=== PATIENT | female | born 1960 | race Asian ===

== ENCOUNTER → 2016-11-16 | Outpatient (CLI) | payer OTHER ==
[~2016-11-16] VITALS: Ht 152.4 cm; Wt 68.0 kg
[2016-11-16 08:38] VITALS: BP 148/75
--- NOTE | 2016-11-16 11:18 | RAD ---
Indication masses in the left breast highly suspect for malignancy. Note is made of a diagnostic mammogram and a left breast ultrasound 10/11/2016. Those studies were reviewed. Preliminary ultrasound images were obtained. Known masses (2) at the 3:00 position of the left breast in zones A and B are identified. Active Directory Engineer images were saved The patient does not speak Slovenian. The son was in the room during the procedure and functioned as the paint brush maker. The risks of infection and bleeding were outlined. The patient understood the risks associated with the procedure and wished proceed. Initially the more superficial mass at the 3:00 position, zone A, was approached. The skin was prepped and draped in the routine fashion. Local anesthesia was accomplished with 1% lidocaine. A 14-gauge coaxial biopsy system was utilized. 3. Core samples were obtained. Following the biopsy an Ultra clip breast tissue marker was placed. Subsequently, using a new tray needles and biopsy system the second, deeper mass at the 3:00 position, zone B, was approached. The skin was again prepped and draped in the routine fashion. Local anesthesia was accomplished with 1% lidocaine. A 14-gauge coaxial biopsy system was again utilized. 3 core samples were obtained. Following the biopsy a Gel Freeman Ultracor breast tissue marker was placed. Retrieved tissue was placed in formaldehyde (2 different specimen cups) and transferred to pathology. The patient tolerated the biopsy procedure unremarkably. Post biopsy clip deployment conventional mammographic images were obtained. Clips are noted and appear appropriately positioned. Following the biopsies the breast was dressed in the routine fashion. The patient was discharged with appropriate instructions. IMPRESSION:: Successful ultrasound-guided biopsy of 2 masses in the left breast
--- NOTE | 2016-11-17 16:04 | PATHOLOGY ---
PATHOLOGY REPORT * * * * * * * * FINAL DIAGNOSIS: A. Breast tissue, left breast site 1 superficial zone A, core biopsies: - INVASIVE DUCTAL CARCINOMA, HISTOLOGIC GRADE 2, WITH FOCAL DENSE SCLEROSIS. B. Breast tissue, left breast site 2 deeper zone B, core biopsies: - INVASIVE DUCTAL CARCINOMA, HISTOLOGIC GRADE 2, WITH FOCAL DENSE SCLEROSIS. COMMENT: Sections of the left breast site 1 and left breast site 2 core biopsies appear similar and reveal an invasive ductal carcinoma with a central core of dense sclerosis. The invasive tumor largely has a solid appearance but does show focal tubule formation within the dense sclerotic core. The invasive tumor shows moderate nuclear pleomorphism, and focal moderate mitotic activity. There is no lymphovascular tumor invasion. There does appear to be a focal area of ductal carcinoma in-situ with lobular extension in left breast site 2. The invasive carcinoma measures up to 1.4 cm in greatest dimension on the glass slide of left breast site 2. Breast prognostic studies will be obtained on left breast site 2, the results of which will be reported separately. The case is also examined by Dr. Gupta, who concurs with the diagnosis. (JPM:all; d/t: 11/17/2016) REPORT ELECTRONICALLY SIGNED BY: Mason Jenkins M.D. DATE/TIME: 11/17/2016 16:03 * * * * * * * * GROSS PATHOLOGY: A. Received in formalin labeled "Jaylen, Htoe and left breast site 1," are few needle cores of yellow-kathleen fibrofatty tissue measuring 1.7 x 0.5 x 0.2 cm in aggregate dimensions. The tissue is submitted in its entirety in cassette A1. The cold ischemic time is 20 minutes. The total formalin fixation time is 10 hours and 25 minutes. B. Received in formalin labeled "Jaylen, Htoe and left breast site 2," are several needle cores of yellow-kathleen fibrofatty tissue measuring 1.7 x 0.4 x 0.3 cm in aggregate dimensions. The tissue is submitted in its entirety in cassette B1. The cold ischemic time is 20 minutes. The total formalin fixation time is 10 hours and 25 minutes. (TTL; 11/16/2016) INITIAL CPT CODE(S): A; 03048, 22033(4) B; 92763 Professional services performed by [facility] at [address] [address] Technical services performed by [facility] at [address] [place] [address], [address], [place] [address]. [place] [address], [place] [address] phone: [phone] fax: [phone] SPECIMEN(S) RECEIVED: A.Left breast, site 1, superficial zone A B.Left breast, site 2, deeper zone B CLINICAL HISTORY: Left breast mass PATIENT: ANATSASIA TOM /AGE: 1 1960 (Age: 56) PATIENT #: [id number] ALT CASE #: SPECIMEN COLLECTION DATE: 11/16/2016 SPECIMEN RECEIVED DATE: 11/16/2016 [facility] - [address] [place] [address] - PHONE: [phone] * * * END OF REPORT * * *
== END | disposition home or self-care (01) ==
LOC: US 08:09 → EDUNIT# 08:30
PROVIDERS: ATTEND Surgery
DX: N63 Unspecified lump in breast (principal)
CPT/HCPCS: 76942; C1713; G0206

== ENCOUNTER 2016-12-07 07:34 | Observation (INO) | payer OTHER ==
[2016-12-07] VITALS (11 sets, daily range): BP systolic 109–147; BP diastolic 66–89
[~2016-12-07] VITALS: Ht 152.4 cm; Wt 68.5 kg
[~2016-12-07 07:34] MED LIST: CARV12.52 PO; FENTANYL PF 100 MCG/2 ML VIAL. IV PRN; HYDROMORPHONE 2 MG/ML VIAL. IV PRN; ISOSULFAN BLUE 50 MG/5 ML VIAL. SQ ONE; IV RINGERS,LACTATED 1000ML 1,000 ML IV SCH; LIDOCAINE 1% 1 ML SYRINGE. ID PRN; ONDANSETRON PF 4 MG/2 ML VIAL. IV PRN; PROCHLORPERAZINE 10 MG/2 ML VIAL. IV PRN; TRIA1CAP3 PO
[2016-12-07] MEDS ORDERED: LIDOCAINE 1% / SOD BICARB 8.4% 20 ML VIAL. IJ ONE (08:00)
[2016-12-07] MEDS ORDERED: CEFAZOLIN 2GM PREMIX 50 ML IV ONE (08:20)
[2016-12-07 08:23] LABS: NEG OBC UR NEG; POS OBC UR POS
[2016-12-07 08:26] LABS: BASO % 1 % (0-3); EOS % 4 % (0-3); HEMATOCRIT 38.4 % (36.0-47.0); HEMOGLOBIN 11.8 g/dL (12.0-15.5); LYMPH # 1.7 x10^3/uL (1.0-4.8); LYMPH % 35 % (24-48); MEAN CORPUSCULAR HEMOGLOBIN 20 pg (25-35); MEAN CORPUSCULAR HGB CONC 31 g/dL (31-37); MEAN CORPUSCULAR VOLUME 64 fL (79-100); MONO % 10 % (0-9); NEUT % 51 % (31-73); PLATELET COUNT 250 x10^3/uL (140-400); RED BLOOD COUNT 6.05 x10^6/uL (3.50-5.40); RED CELL DISTRIBUTION WIDTH 16.1 % (11.5-14.5); WHITE BLOOD COUNT 4.7 x10^3/uL (4.0-11.0)
[2016-12-07 08:41] LABS: CALCIUM 9.3 mg/dL (8.5-10.1); CREATININE 1.1 mg/dL (0.6-1.0); GFR 51.8
[2016-12-07 08:47] LABS: ALBUMIN 3.8 g/dL (3.4-5.0); ALBUMIN/GLOBULIN RATIO 0.8 (1.0-1.7); TOTAL BILIRUBIN 0.5 mg/dL (0.2-1.0); TOTAL PROTEIN 8.3 g/dL (6.4-8.2)
--- NOTE | 2016-12-07 09:38 | RAD ---
Indication: Preop for lumpectomy. Time of exam 0918 hours. No prior studies are available for comparison. The heart is mildly enlarged. The lungs are clear. The pulmonary vascularity is normal. No effusion or pneumothorax is seen. Impression: No acute cardiopulmonary process is detected.
--- NOTE | 2016-12-07 10:18 | RAD ---
Left breast radionuclide sentinel node localization, 12/07/2016: History: Breast cancer Under aseptic conditions and utilizing ethyl chloride spray for topical anesthesia, a total of 0.90 mCi of filtered technetium 99m sulfur colloid mixed with 0.5 cc of 1% buffered lidocaine was injected subdermally in the left periareolar region in 4 divided doses. No imaging was performed. The patient tolerated the procedure well and was sent to surgery in good condition.
[2016-12-07 10:20] LABS: MICROCYTOSIS PRESENT; PLT ESTIMATE ADEQUATE (ADEQUATE)
[2016-12-07] MEDS ORDERED: FENTANYL PF 100 MCG/2 ML VIAL. ONE ×2 (10:20→12:44)
[2016-12-07 10:21] LABS: ANISOCYTOSIS PRESENT; HYPOCHROMIA PRESENT
[2016-12-07] MEDS ORDERED: EPHEDRINE PF IN SALINE 50 MG/5 ML DISP.SYRIN. IV ONE (10:50)
[2016-12-07] MEDS ORDERED: ONDANSETRON PF 4 MG/2 ML VIAL. ONE (11:44)
[2016-12-07] MEDS ORDERED: DEXAMETHASONE SOD PHOS 20 MG/5 ML VIAL. ONE (11:44)
[2016-12-07] MEDS ORDERED: PROPOFOL 20 ML IV ONE (11:44)
[2016-12-07] MEDS ORDERED: LIDOCAINE 2% PF Vial for OR 5 ML VIAL. ONE (11:44)
[2016-12-07] MEDS ORDERED: LABETALOL 20 MG/4 ML DISP.SYRIN. ONE (11:44)
[2016-12-07] MEDS ORDERED: SEVOFLURANE > 120 MINUTES. IH ONE (12:37)
--- NOTE | 2016-12-07 13:04 | PDOC4 ---
Operative Note Operative Note Operative Note: Preoperative Diagnosis: Left breast cancer Postoperative Diagnosis: Same Procedure: Left simple mastectomy, sentinel lymph node biopsy, axillary dissection Surgeon: Andrew Battery Assembler Dry Cell: Sabina MARK Anesthesia: Gen. Specimen: Left breast stitch at 12:00 to pathology, left axillary contents to pathology Drains: 19 Mosotho round Dillan drain the chest wall Complications: None Indication: The patient is a 56-year-old female who was recently diagnosed with multifocal left breast cancer. Due to the nature of her presentation in complete mastectomy was advised. The plan incorporate a sentinel lymph node biopsy and she is aware that an excellent dissection may be necessary. The risks of surgery were discussed with the patient and her son which include bleeding, infection, wound healing problems, pain, scar tissue, anesthetic risk , potential need for additional surgeries or procedures. They understand and would like to proceed. Description: The patient was initially taken to radiology where injection of technetium sulfur colloid was performed. She was then taken to the operating room and placed supine on the operating table. Gen. anesthesia was performed. The left breast was prepped with ChloraPrep and draped in a standard surgical manner. Four milliliters of Lymphazurin was initially injected deep to the nipple areolar complex. Several minutes were allowed to elapse for uptake. An elliptical marking was made around the nipple areola complex extending from the medial chest to the axilla. This marking was the planned incision site. The outer aspect of the superior part of the marking was incised using a 10 blade scalpel. Cautery dissection was carried down into the axillary tissue. We were able to see a somewhat dilated blue staining lymphatic. The appearance raise suspicion for possible lymphatic obstruction. The left axilla was then interrogated with the C-Trak probe. We were unable to find a lymph node that showed clear increased nuclear uptake. Further palpation showed firm enlarged lymph nodes that appeared suspicious. For these reasons it seemed most prudent to proceed with a full axillary dissection. With the scalpel the incision was extended at the side of the prior skin elliptical marking. We began developing the superior flap initially. The superior flap skin was from the breast parenchyma using cautery. The dissection was carried superiorly just to the level below the clavicle. The dissection was then continued down to the pectoralis muscle. In a similar manner the inferior flap was developed the skin from the deeper breast tissue. This dissection was continued inferiorly to include the inframammary fold. The dissection was then continued down to the level of the upper torso. In a medial to lateral fashion the breast tissue was taken off of the chest wall and musculature. Most of the blood vessels were readily controlled with cautery. A few larger vessels were ligated with 3-0 Vicryl ties. Laterally we included the axillary tail of Kenny. The entire breast was then fully excised and marked with a stitch at the 12 o'clock position and sent to pathology. We then began with the axillary dissection. The boundaries of the dissection were identified and include the axillary vein superiorly, the pectoralis medially, and the latissimus laterally. We were able to identify both the long thoracic and thoracodorsal nerves and they were each preserved. In a superior to inferior manner the adipose and lymphatic tissue within the axilla was then mobilized from the surrounding tissues. This included the suspicious palpable lymph nodes. The axillary contents were then fully excised and sent off to pathology. Inspection showed good clearance within the anatomic boundaries. A few of the larger blood vessels were ligated with 3-0 Vicryl. At this point hemostasis was good. A 19 Mosotho round Dillan drain was left in the chest wall which exited inferiorly. Us was secured to the skin with 2-0 silk. The subcutaneous tissue was then approximated with interrupted 3-0 Vicryl. The skin was closed with a running 4- 0 Monocryl suture. A sterile OpSite dressing was then applied. The patient tolerated the procedure well and was sent to the recovery room in stable condition. At the end of the case all counts were correct. PAXTON ALAMO MD Dec 07, 2016 13:04
[2016-12-07] MEDS ORDERED: PROCHLORPERAZINE 10 MG/2 ML VIAL. IV PRN (13:15)
[2016-12-07] MEDS ORDERED: OXYCODONE/APAP 5/325 TABLET. PO PRN (13:15)
[2016-12-07] MEDS ORDERED: ONDANSETRON PF 4 MG/2 ML VIAL. IV PRN (13:15)
[2016-12-07] MEDS ORDERED: HYDROMORPHONE 2 MG/ML VIAL. IV PRN ×2 (13:15)
[2016-12-07] MEDS ORDERED: 0.9 % SODIUM CHLORIDE 10 ML DISP.SYRIN. IV PRN (13:15)
[2016-12-07] MEDS: FENTANYL PF 100 MCG/2 ML VIAL. IV PRN ×4 (13:34→14:13)
[2016-12-07] MEDS: MORPHINE SULFATE 2 MG/ML DISP.SYRIN. IV PRN ×2 (13:48→14:01)
[2016-12-07] MEDS: POTASSIUM CL 20MEQ D5-0.45NACL 1,000 ML IV SCH ×2 (16:21→23:30)
[2016-12-08 03:25] VITALS: BP 102/65
[2016-12-08 07:15] VITALS: BP 110/65
[2016-12-08] MEDS ORDERED: TRIAMTERENE/HCTZ 37.5/25MG TABLET. PO SCH (09:00)
[2016-12-08] MEDS ORDERED: CARVEDILOL 12.5 MG TABLET PO SCH (09:00)
[2016-12-08] MEDS: POTASSIUM CL 20MEQ D5-0.45NACL 1,000 ML IV SCH (09:04)
[2016-12-08] MEDS: OXYCODONE/APAP 5/325 TABLET. PO PRN ×2 (09:06→13:05)
--- NOTE | 2016-12-08 10:33 | PDOC ---
SURGICAL PROGRESS NOTE Subjective pain to chest/drain site able to urinate tolerating breakfast Vital Signs Vital Signs Date Time Temp Pulse Resp B/P Pulse Ox O2 Delivery O2 Flow Rate FiO2 12/08/16 09:06 20 95 Room Air 12/08/16 08:57 80 110/65 12/08/16 07:15 98.3 98.3 12/08/16 03:25 2.0 I&O Intake and Output 12/08/16 07:00 Intake Total 3230 ml Output Total 190 ml Balance 3040 ml Intake Oral 240 ml IV Total 1650 ml Other 1340 ml Output Drainage Total 190 ml # Voids 3 General: Alert, Oriented X3, Cooperative, No acute distress Skin: Other (left breast incision c/d/ no erythema no visiable ecchymosis, SHERON serosang) Labs Laboratory Tests Test 12/07/16 07:55 12/07/16 08:15 Urine Test Negative (NEG) White Blood Count 4.7x10^3/uL (4.0-11.0) Red Blood Count 6.05x10^6/uL (3.50-5.40) Hemoglobin 11.8g/dL (12.0-15.5) Hematocrit 38.4% (36.0-47.0) Mean Corpuscular Volume 64fL (79-100) Mean Corpuscular Hemoglobin 20pg (25-35) Mean Corpuscular Hemoglobin Concent 31g/dL (31-37) Red Cell Distribution Width 16.1% (11.5-14.5) Platelet Count 250x10^3/uL (140-400) Neutrophils (%) (Auto) 51% (31-73) Lymphocytes (%) (Auto) 35% (24-48) Monocytes (%) (Auto) 10% (0-9) Eosinophils (%) (Auto) 4% (0-3) Basophils (%) (Auto) 1% (0-3) Neutrophils # (Auto) 2.4x10^3uL (1.8-7.7) Lymphocytes # (Auto) 1.7x10^3/uL (1.0-4.8) Monocytes # (Auto) 0.5x10^3/uL (0.0-1.1) Eosinophils # (Auto) 0.2x10^3/uL (0.0-0.7) Basophils # (Auto) 0.0x10^3/uL (0.0-0.2) Platelet Estimate Adequate (ADEQUATE) Hypochromasia Present Anisocytosis Present Microcytosis Present Sodium Level 141mmol/L (136-145) Potassium Level 3.0mmol/L (3.5-5.1) Chloride Level 102mmol/L (98-107) Carbon Dioxide Level 29mmol/L (21-32) Anion Gap 10 (6-14) Blood Urea Nitrogen 14mg/dL (7-20) Creatinine 1.1mg/dL (0.6-1.0) Estimated GFR (Cockcroft-Gault) 51.8 BUN/Creatinine Ratio 13 (6-20) Glucose Level 96mg/dL (70-99) Calcium Level 9.3mg/dL (8.5-10.1) Total Bilirubin 0.5mg/dL (0.2-1.0) Aspartate Amino Transf (AST/SGOT) 19U/L (15-37) Alanine Aminotransferase (ALT/SGPT) 29U/L (14-59) Alkaline Phosphatase 65U/L (46-116) Total Protein 8.3g/dL (6.4-8.2) Albumin 3.8g/dL (3.4-5.0) Albumin/Globulin Ratio 0.8 (1.0-1.7) Problem List Problems Medical Problems: (1) Breast cancer, left Status: Acute Assessment/Plan s/p mastectomy, axillary dissection dc home with drain FU in clinic next week script left for arrangement to FU in lymphedema clinic Problems: PRASHANT ORTEGA APRN Dec 08, 2016 10:33
[2016-12-08] MEDS ORDERED: OXYC1TAB7 PO (10:45)
[2016-12-08 11:18] VITALS: BP 100/55
== END 2016-12-08 13:31 | disposition home or self-care (01) ==
LOC: SURG 07:34 → 4 NORTH 13:20
PROVIDERS: ADMIT Surgery; ATTEND Surgery
DX: C50.912 Malignant neoplasm of unspecified site of left female breast (principal)
CPT/HCPCS: 19303; 36415; 38525; 38792; 71020; 80053; 81025; 85007; 85027; 96374; 96375; 96376; A9541; C1769; G0378; G0379; J0690; J1100; J1170; J2270; J2405; J2704; J3010; J3490; J7120; Q9968

== ENCOUNTER → 2016-12-23 | Outpatient (CLI) | payer OTHER ==
[2016-12-08 11:18] VITALS: BP 100/55
[~2016-12-23] MED LIST changes: +CONTRAST GIVEN MC PRN; -FENTANYL PF 100 MCG/2 ML VIAL. IV PRN; -HYDROMORPHONE 2 MG/ML VIAL. IV PRN; +IOHEXOL 240 MG/ML 50ML VIAL. PO ONE; +IOHEXOL 300 MG/ML 75 ML VIAL PO ONE; -ISOSULFAN BLUE 50 MG/5 ML VIAL. SQ ONE; -IV RINGERS,LACTATED 1000ML 1,000 ML IV SCH; -LIDOCAINE 1% 1 ML SYRINGE. ID PRN; -ONDANSETRON PF 4 MG/2 ML VIAL. IV PRN; +OXYC1TAB7 PO; -PROCHLORPERAZINE 10 MG/2 ML VIAL. IV PRN
--- NOTE | 2016-12-23 10:22 | RAD ---
Indication breast malignancy. Staging. Axial images of the chest abdomen and pelvis were obtained. Both oral and IV contrast were administered. Approximately 60 cc of Omnipaque 300 was administered intravenously. No prior CT imaging is available. CT chest: Findings Left mastectomy is noted. Some air in the soft tissues of the left chest wall is likely postoperative. The thoracic aorta appears unremarkable. Significant hilar or mediastinal adenopathy is not seen. A dominant soft tissue mass is not apparent. An acute finding in the chest is not seen. No evidence of metastatic disease in the chest is seen. CT abdomen and pelvis: Findings. The liver and spleen appear unremarkable and the gallbladder appears grossly normal. No adrenal anomalies are seen and the kidneys appear unremarkable. The pancreas appears normal. Significant central or retroperitoneal adenopathy is not seen. No acute or significant finding in the abdomen is seen. The pelvis is unremarkable. There is no evidence of metastatic disease. IMPRESSION: No acute finding seen in the chest, abdomen or pelvis. No evidence of metastatic disease PQRS Compliance Statement: One or more of the following individualized dose reduction techniques were utilized for this examination: 1. Automated exposure control 2. Adjustment of the mA and/or kV according to patient size 3. Use of iterative reconstruction technique
--- NOTE | 2016-12-23 13:05 | RAD ---
Whole body bone scan Clinical indications: Breast cancer staging. Left mastectomy December 07, 2016. Technique: After IV infusion of 25 mCi of technetium 99m MDP, delayed anterior and posterior planar images of the whole skeleton were performed. Findings: Bilateral renal function is evident. Degenerative activity is seen at the sternomanubrial joint. There is no pattern of uptake to indicate osseous metastatic disease. IMPRESSION: No pattern of uptake to indicate osseous metastatic disease.
== END | disposition home or self-care (01) ==
LOC: NM 07:00
PROVIDERS: ATTEND Internal Medicine Hematology & Oncology
DX: C50.112 Malignant neoplasm of central portion of left female breast (principal); Z90.12 Acquired absence of left breast and nipple
CPT/HCPCS: 71260; 74177; 78306; 96374; A9503; Q9966; Q9967

== ENCOUNTER 2016-12-26 07:08 | Day surgery (SDC) | payer OTHER ==
[~2016-12-26] VITALS: Ht 152.4 cm; Wt 68.0 kg
[~2016-12-26 07:08] MED LIST changes: +CEFAZOLIN 2GM PREMIX 50 ML IV PRN; -CONTRAST GIVEN MC PRN; +FENTANYL PF 100 MCG/2 ML VIAL. IV PRN; +HEPARIN S0DIUM 5,000 UNIT in IV NORMAL SALINE 500ML BAG 500 ML IRR ONE; +HYDROMORPHONE 2 MG/ML VIAL. IV PRN; -IOHEXOL 240 MG/ML 50ML VIAL. PO ONE; -IOHEXOL 300 MG/ML 75 ML VIAL PO ONE; +IV RINGERS,LACTATED 1000ML 1,000 ML IV SCH; +LIDOCAINE 1% 1 ML SYRINGE. ID PRN; +MORPHINE SULFATE 2 MG/ML DISP.SYRIN. IV PRN; +ONDANSETRON PF 4 MG/2 ML VIAL. IV PRN; +PROCHLORPERAZINE 10 MG/2 ML VIAL. IV PRN
[2016-12-26] MEDS ORDERED: LIDOCAINE 1% 20 ML VIAL. ONE (07:51)
[2016-12-26] MEDS ORDERED: DEXAMETHASONE SOD PHOS 20 MG/5 ML VIAL. ONE (08:04)
[2016-12-26] MEDS ORDERED: FENTANYL PF 100 MCG/2 ML VIAL. ONE (08:05)
[2016-12-26] MEDS ORDERED: ONDANSETRON PF 4 MG/2 ML VIAL. ONE (08:05)
[2016-12-26] MEDS ORDERED: DESFLURANE 31 TO 60 MINUTES IH ONE (08:05)
[2016-12-26] MEDS ORDERED: PROPOFOL 20 ML IV ONE (08:05)
[2016-12-26] MEDS ORDERED: LIDOCAINE 2% 100 MG/5 ML DISP.SYRIN. ONE (08:05)
--- NOTE | 2016-12-26 09:59 | PDOC4 ---
Operative Note Operative Note Operative Note: Preoperative Diagnosis: Postoperative Diagnosis: Same Procedure: Placement of Port-A-Cath with SonoSite guidance, right internal jugular vein Surgeon: Andrew Anesthesia: Gen. Specimen: None EBL: 20 mL Drains: None Complications: None Indication: The patient is a 56 year old female who was recently diagnosed with breast cancer. Chemotherapy will be required and a request was made for Port-A- Cath. The details and risks of surgery were discussed with the patient. The risks include bleeding, infection, vessel injury, pneumothorax, pain, port or catheter malfunction or dysfunction, potential need for additional surgery or procedure. The patient understands and would like to proceed Description: The patient was taken to the operating room and placed supine on the operating table. General anesthesia was performed. The right neck and chest were prepped with ChloraPrep and draped in a standard surgical manner. The ZIMPERIUM ultrasound device was used to probe the right neck. The right internal jugular vein was readily identified and appeared patent. The vein was entered with the introducer needle under SonoSite guidance. The skinny guidewire was then passed readily into the central venous system and confirmed using intraoperative fluoroscopy. A small incision was made at the exit site of the wire in the skin using a scalpel. The skinny catheter was then placed over the guidewire. The larger guidewire was then placed through the catheter and again visualized in the central venous system using fluoroscopy. The larger dilator and sheath were then placed over the guidewire into the internal jugular vein. The sheath was then peeled and the catheter readily aspirated and flushed. A counter incision was made in the right upper chest with a scalpel. With cautery a subcutaneous pocket was developed of sufficient size to accommodate the port. The catheter was then tunneled subcutaneously to the location of the port. There was some bleeding from the tract that was encountered. This was controlled with pressure applied to the tunnelled tract, and the bleeding ceased. The distal tip of the catheter was then positioned in the distal superior vena cava using fluoroscopy. The catheter was then cut and assembled to the port. The port was secured in the subcutaneous pocket using two 2-0 Prolene sutures. Using the Self needle the port readily aspirated and flushed. Fluoroscopy again confirmed good positioning of the port and catheter with no twists or kinks. The subcutaneous tissue was then approximated with interrupted 3-0 Vicryl. The skin was closed with 4-0 Monocryl. A sterile OpSite dressing was then applied. The patient tolerated the procedure well and was sent to the recovery room in stable condition. At the end of the case all counts were correct. PAXTON ALAMO MD Dec 26, 2016 09:59
--- NOTE | 2016-12-26 10:02 | DISCH ---
DISCHARGE INSTRUCTIONS Condition on Discharge Condition on Discharge: Stable Activity After Discharge Activity Instructions for Disc: Resume previous activity Diet after Discharge Diet after Discharge: Regular Wound Incision Care Wound/Incision Care: Other, see below (may remove gauze dressing tomorrow; keep opsite dressing clean and dry) Follow-Up Follow up with: Dr Alamo in 2-3 weeks in office, call for appt [phone] PAXTON ALAMO MD Dec 26, 2016 10:02
[2016-12-26 10:48] VITALS: BP 151/84
--- NOTE | 2016-12-26 10:54 | RAD ---
Portable chest, 12/26/2016: History: Check Port-A-Cath placement Comparison is made to a study from 12/07/2016. A right jugular Port-A-Cath has been placed extending into the inferior aspect of the superior vena cava. The heart size and pulmonary vascularity are within normal limits. There is mild tortuosity of the thoracic aorta. No pulmonary infiltrates are seen. There is no evidence of pneumothorax or pleural fluid. IMPRESSION: 1. Interval insertion of a right Port-A-Cath in satisfactory position. 2. No acute cardiopulmonary abnormality is detected.
== END 2016-12-26 11:08 | disposition home or self-care (01) ==
LOC: SURG 07:08
PROVIDERS: ATTEND Surgery
DX: C50.919 Malignant neoplasm of unspecified site of unspecified female breast (principal); I10 Essential (primary) hypertension; Z85.3 Personal history of malignant neoplasm of breast
CPT/HCPCS: 36561; 71010; C1788; J0690; J1100; J2405; J2704; J3010; J7040; 36556

== ENCOUNTER → 2016-12-29 | Outpatient (CLI) | payer OTHER ==
[2016-12-26 10:48] VITALS: BP 151/84
[~2016-12-29] MED LIST changes: -CEFAZOLIN 2GM PREMIX 50 ML IV PRN; -FENTANYL PF 100 MCG/2 ML VIAL. IV PRN; -HEPARIN S0DIUM 5,000 UNIT in IV NORMAL SALINE 500ML BAG 500 ML IRR ONE; -HYDROMORPHONE 2 MG/ML VIAL. IV PRN; -IV RINGERS,LACTATED 1000ML 1,000 ML IV SCH; -LIDOCAINE 1% 1 ML SYRINGE. ID PRN; -MORPHINE SULFATE 2 MG/ML DISP.SYRIN. IV PRN; -ONDANSETRON PF 4 MG/2 ML VIAL. IV PRN; -PROCHLORPERAZINE 10 MG/2 ML VIAL. IV PRN
--- NOTE | 2016-12-29 15:08 | CARD ---
APPROVED REPORT EXAM: LIMITED Two-dimensional echocardiogram. Other Information Quality : Average Rhythm : NSR INDICATION Chemotherapy treatment evaluation 2D DIMENSIONS IVSd1.0 (0.7-1.1cm)LVDd4.0 (3.9-5.9cm) PWd1.0 (0.7-1.1cm)LVDs2.5 (2.5-4.0cm) FS (%) 27.7 %SV49.2 ml LVEF(%)58.3 (>50%) LEFT VENTRICLE The left ventricle is normal size. There is normal left ventricular wall thickness. Left ventricle sy stolic function is normal. The Ejection Fraction is 55-60%. GLS avg. -19.14% There is normal LV segme ntal wall motion. RIGHT VENTRICLE The right ventricle is normal size. The right ventricular systolic function is normal. ATRIA The left atrium size is normal. The right atrium size is normal. GREAT VESSELS na PERICARDIAL EFFUSION There is no evidence of significant pericardial effusion. Critical Notification Critical Value: No <Conclusion> Limited echo to assess LV function. Left ventricle systolic function is normal. The Ejection Fraction is 55-60%. There is normal LV segmental wall motion. There is no evidence of significant pericardial effusion.
== END | disposition home or self-care (01) ==
LOC: ECHO 13:55
PROVIDERS: ATTEND Internal Medicine Hematology & Oncology
DX: C50.112 Malignant neoplasm of central portion of left female breast (principal); Z92.21 Personal history of antineoplastic chemotherapy
CPT/HCPCS: 93306

== ENCOUNTER 2017-02-27 14:10 | Emergency (ER) | payer OTHER ==
[~2017-02-27] VITALS: Ht 152.4 cm; Wt 65.8 kg
[2017-02-27 14:31] VITALS: BP 108/65
--- NOTE | 2017-02-27 15:30 | RAD ---
Indication fever and cough. History of breast cancer. PA and lateral views of the chest were obtained. Comparison is made to an exam 12/26/2016. Heart size is slightly enlarged but unchanged. There is no gross congestive heart failure. There is no focal infiltrate. Significant pleural fluid is not present. There is no pneumothorax. A right Port-A-Cath is noted. IMPRESSION: No acute or focal process is seen in the chest.
--- NOTE | 2017-02-27 16:05 | PHYS DOC ---
Past Medical History Past Medical History: Hypertension, Other Additional Past Medical Histor: breast cancer Additional Past Surgical Histo: L mastectomy Alcohol Use: None Drug Use: None Adult General Chief Complaint Chief Complaint: FEVER HPI HPI Patient is a 56 year old female who presents with cough, rhinorrhea, nasal congestion, sore throat, and fever to 102 over the past few days. She otherwise feels in her normal state of health during chemo treatments; normal activity, bowel and bladder function. She does note some sores on her mouth that she has been told are side effects of chemo. No headache, chest pain, dyspnea, abdominal pain, nausea or vomiting, diarrhea, dysuria. Other family members are sick with exact same symptoms. Review of Systems Review of Systems Constitutional: Has fever and chills [] Eyes: Denies change in visual acuity, redness, or eye pain [] HENT: Denies nasal congestion or sore throat [] Respiratory: Denies cough or shortness of breath [] Cardiovascular: No additional information not addressed in HPI [] GI: Denies abdominal pain, nausea, vomiting, bloody stools or diarrhea [] : Denies dysuria or hematuria [] Musculoskeletal: Denies back pain or joint pain [] Integument: Denies rash or skin lesions [] Neurologic: Denies headache, focal weakness or sensory changes [] Endocrine: Denies polyuria or polydipsia [] Allergies Allergies Allergies Coded Allergies Type Severity Reaction Last Updated Verified No Known Drug Allergies 12/26/16 No Physical Exam Physical Exam Constitutional: Well developed, well nourished, no acute distress, non-toxic appearance. [] HENT: Normocephalic, atraumatic, bilateral external ears normal, oropharynx moist, no oral exudates, nose normal. Has few shallow ulcers to wet and dry mucosa of mouth and tongue [] Eyes: PERRLA, EOMI, conjunctiva normal, no discharge. [] Neck: Normal range of motion, no tenderness, supple, no stridor. [] Cardiovascular:Heart rate regular rhythm [] Lungs & Thorax: Bilateral breath sounds clear to auscultation [] Abdomen: Bowel sounds normal, soft, no tenderness. [] Skin: Warm, dry, no erythema, no rash. [] Back: No tenderness, no CVA tenderness. [] Extremities: No tenderness, ROM intact, no edema. [] Neurologic: Alert and oriented X 3, normal motor function, normal sensory function, no focal deficits noted. [] Psychologic: Affect normal, judgement normal, mood normal. [] Current Patient Data Vital Signs Vital Signs Date Time Temp Pulse Resp B/P Pulse Ox O2 Delivery O2 Flow Rate FiO2 02/27/17 14:31 100.3 89 16 108/65 94 Room Air 100.3 Radiology/Procedures Radiology/Procedures Chest xray as interpreted by me with no acute cardiopulmonary disease process Course & Med Decision Making Course & Med Decision Making Pertinent Labs and Imaging studies reviewed. (See chart for details) Discussed supportive care for likely viral illness. Discussed mouth wash to help with ulcer pain. Return precautions given. She and son understand and agree with plan. Dragon Disclaimer Dragon Disclaimer This electronic medical record was generated, in whole or in part, using a voice recognition dictation system. Departure Departure Impression: Primary Impression: Viral upper respiratory infection Additional Impression: Oral ulcer Disposition: HOME, SELF-CARE Condition: STABLE Referrals: SAUNDRA DIAZ JR, MD (PCP) Patient Instructions: Upper Respiratory Infection, Adult, [id number] Additional Instructions: Use Benadryl liquid mixed with liquid Maalox to swish and spit as needed to help with pain from mouth sores. Follow-up with your primary care doctor within one week. Return for any concerns. Problem Qualifiers Abiel SULLIVAN MD Feb 27, 2017 16:05
== END 2017-02-27 16:29 | disposition home or self-care (01) ==
LOC: ER 14:10
DX: J06.9 Acute upper respiratory infection, unspecified (principal); K12.1 Other forms of stomatitis; I10 Essential (primary) hypertension
CPT/HCPCS: 71020; 99284-25

== ENCOUNTER → 2017-07-07 | Outpatient (CLI) | payer OTHER ==
[~2017-07-07] MED LIST changes: +POTA20TA82 PO; +PROC10TA57 PO; +SENN8.6T99 PO
--- NOTE | 2017-07-07 14:36 | CARD ---
APPROVED REPORT EXAM: Two-dimensional and M-mode echocardiogram with Doppler and color Doppler. Other Information Quality : GoodHR: 72bpm Rhythm : NSR INDICATION Malignant neoplasm left breast RISK FACTORS Hypertension 2D DIMENSIONS RVDd2.9 (2.9-3.5cm)IVSd0.8 (0.7-1.1cm) Aortic Root(2D)3.0 (2.0-3.7cm)LVDd5.1 (3.9-5.9cm) PWd0.9 (0.7-1.1cm)LVDs3.5 (2.5-4.0cm) FS (%) 30.8 %SV70.8 ml LVEF(%)58.2 (>50%) LEFT VENTRICLE Limited ECHO for LV function. The left ventricle is normal size. There is normal left ventricular wal l thickness. The left ventricular systolic function is normal and the ejection fraction is within nor mal range. The Ejection Fraction is 55-60%. There is normal LV segmental wall motion. RIGHT VENTRICLE The right ventricle is normal size. There is normal right ventricular wall thickness. The right ventr icular systolic function is normal. GREAT VESSELS The aortic root is normal in size. The ascending aorta is normal in size. PERICARDIAL EFFUSION There is no evidence of significant pericardial effusion. Critical Notification Critical Value: No <Conclusion> Limited ECHO for LV function. The left ventricle is normal size. The left ventricular systolic function is normal and the ejection fraction is within normal range. The Ejection Fraction is 55-60%. There is normal left ventricular wall thickness. There is normal LV segmental wall motion. There is no evidence of significant pericardial effusion.
== END | disposition home or self-care (01) ==
LOC: ECHO 13:05
PROVIDERS: ATTEND Internal Medicine Hematology & Oncology
DX: C50.912 Malignant neoplasm of unspecified site of left female breast (principal); Z17.0 Estrogen receptor positive status [ER+]
CPT/HCPCS: 93306

== ENCOUNTER → 2017-07-25 | Outpatient (CLI) | payer OTHER ==
--- NOTE | 2017-07-25 12:51 | KCIC ---
Indication: Breast cancer. The bone mineral density of the lumbar spine L1-L4 is 0.804 with a T score of -2.2. The bone mineral density of the left femoral neck is 0.856 with a T score of -0.7. IMPRESSION: Osteopenia of the lumbar spine and normal bone mineral density of the left femoral neck. Electronically signed by: Chivo Gray MD (07/25/2017 12:48 PM) [id number]
== END | disposition home or self-care (01) ==
LOC: KCIC DEXA 09:59
PROVIDERS: ATTEND Internal Medicine Hematology & Oncology
DX: C50.919 Malignant neoplasm of unspecified site of unspecified female breast (principal); M85.80 Other specified disorders of bone density and structure, unspecified site; M81.0 Age-related osteoporosis without current pathological fracture
CPT/HCPCS: 77080

== ENCOUNTER 2017-10-02 20:23 | Inpatient (IN) | payer OTHER ==
[~2017-10-02] VITALS: Ht 152.4 cm; Wt 68.9 kg
[~2017-10-02 20:23] MED LIST changes: +ANAS1TAB3 PO
[2017-10-02] MEDS ORDERED: KETOROLAC 15 MG/ML VIAL. IV ONE (21:15)
[2017-10-02 21:28] LABS: BASO % 0 % (0-3); EOS % 0 % (0-3); HEMATOCRIT 41.7 % (36.0-47.0); HEMOGLOBIN 13.2 g/dL (12.0-15.5); LYMPH # 0.2 x10^3/uL (1.0-4.8); LYMPH % 5 % (24-48); MEAN CORPUSCULAR HEMOGLOBIN 20 pg (25-35); MEAN CORPUSCULAR HGB CONC 32 g/dL (31-37); MEAN CORPUSCULAR VOLUME 62 fL (79-100); MONO % 2 % (0-9); NEUT % 93 % (31-73); PLATELET COUNT 85 x10^3/uL (140-400); RED BLOOD COUNT 6.73 x10^6/uL (3.50-5.40); RED CELL DISTRIBUTION WIDTH 18.6 % (11.5-14.5)
[2017-10-02] MEDS ORDERED: IV NORMAL SALINE 1000ML BAG 1,000 ML IV ONE (21:30)
[2017-10-02 21:52] LABS: ALBUMIN/GLOBULIN RATIO 0.7 (1.0-1.7); C-REACTIVE PROTEIN 183.9 mg/L (0-3.3); CALCIUM 8.6 mg/dL (8.5-10.1); CREATININE 1.5 mg/dL (0.6-1.0); GFR 36.2; TOTAL PROTEIN 7.1 g/dL (6.4-8.2)
[2017-10-02 21:55] LABS: POTASSIUM 2.5 mmol/L (3.5-5.1)
[2017-10-02 21:58] LABS: OBC FLU VALID
[2017-10-02] MEDS ORDERED: POTASSIUM CHLORIDE 20 MEQ TABLET.ER. PO ONE (22:00)
[2017-10-02] MEDS ORDERED: PIPERACILLIN/TAZOBACTAM 3.375 GM in IV DEXTROSE 5% 50 ML IV ONE (22:00)
[2017-10-02] MEDS ORDERED: POTASSIUM CL 40MEQ IN 0.9%NACL 1,000 ML IV ONE (22:15)
[2017-10-02] MEDS ORDERED: PIPERACILLIN/TAZO IV Push 3.375 GM VIAL. IVP SCH (22:15)
[2017-10-02] MEDS ORDERED: VANCOMYCIN 1GM IVPB FOR OMNI 250 ML IV ONE (22:30)
[2017-10-02] MEDS ORDERED: KETOROLAC 30 MG/ML INJ. IV ONE (22:30)
[2017-10-02 22:35] LABS: ANISOCYTOSIS SLIGHT; HYPOCHROMIA MARKED; MICROCYTOSIS MARKED; PLT ESTIMATE DECREASED (ADEQUATE); POIKILOCYTOSIS SLIGHT
[2017-10-02 22:36] LABS: TOXIC VACUOLATION PRESENT
[2017-10-02] MEDS ORDERED: POTASSIUM CHLORIDE 40 MEQ in IV NORMAL SALINE 1000ML BAG 1,000 ML IV ONE (22:45)
[2017-10-02] MEDS ORDERED: ONDANSETRON PF 4 MG/2 ML VIAL. IV PRN (22:45)
[2017-10-02] MEDS ORDERED: VANCOMYCIN 1.5 GM in IV NORMAL SALINE 500ML BAG 500 ML IV ONE (23:00)
[2017-10-02] MEDS ORDERED: PIPERACILLIN/TAZO IV Push 3.375 GM VIAL. IVP ONE (23:00)
--- NOTE | 2017-10-02 23:07 | PHYS DOC ---
Past Medical History Past Medical History: Cancer, Hypertension, Other Additional Past Medical Histor: breast cancer Past Surgical History: Cancer Surgery Additional Past Surgical Histo: L mastectomy Alcohol Use: None Drug Use: None Adult General Chief Complaint Chief Complaint: PAIN ON URINATION HPI HPI Patient is a 56 year old with advanced states metastatic breast cancer currently on chemotherapy who presents with a fever of 104 yesterday and temperature of 103 this evening after taking Tylenol. last chemotherapy was one week ago.Patient reports generalized fatigue, malaise and body aches with occasional cough. No flank pain, dysuria, hematuria, shortness of breath. History is obtained from the patient family members. History limited due to the patient's clinical condition. [] Review of Systems Review of Systems ROS as per hPI. [] All other systems were reviewed and found to be within normal limits, except as documented in this note. Current Medications Current Medications Current Medications Medications (Trade) Dose Ordered Sig/Katie Start Time Stop Time Status Last Admin Dose Admin Ketorolac Tromethamine (Toradol) 15 mg 1X ONCE 10/02/17 21:15 10/02/17 21:19 DC 10/02/17 21:38 15 MG Piperacillin Sod/ Tazobactam Sod (Zosyn) 3.375 gm ONCE 10/02/17 22:15 10/02/17 22:49 DC Piperacillin Sod/ Tazobactam Sod 3.375 gm/Dextrose 50 ml @ 100 mls/hr 1X ONCE 10/02/17 22:00 10/02/17 22:29 UNV Potassium Chloride/Sodium Chloride 1,000 ml @ 75 mls/hr 1X ONCE 10/02/17 22:15 10/03/17 11:34 Potassium Chloride (Klor-Con) 40 meq 1X ONCE 10/02/17 22:00 10/02/17 22:09 DC 10/02/17 22:42 40 MEQ Sodium Chloride 1,000 ml @ 1,000 mls/hr 1X ONCE 10/02/17 21:30 10/02/17 22:29 DC 10/02/17 21:27 1,000 MLS/HR Allergies Allergies Allergies Coded Allergies Type Severity Reaction Last Updated Verified No Known Drug Allergies 12/26/16 No Physical Exam Physical Exam Constitutional: Well developed,[] HENT: Normocephalic, atraumatic, bilateral external ears normal, oropharynx moist, no oral exudates, nose normal. [] Eyes: PERRLA, EOMI, conjunctiva normal, no discharge. [] Neck: Normal range of motion, no tenderness, supple, no stridor. [] Cardiovascular:tachycardic [] Lungs & Thorax: Bilateral breath sounds clear to auscultation [] Abdomen: Bowel sounds normal, soft, no tenderness. [] Skin: Warm, dry, no erythema, no rash. [] Back: No tenderness. [] Extremities: No tenderness, no cyanosis, no clubbing, ROM intact, no edema. [] Neurologic: Alert and oriente, normal motor function, normal sensory function, no focal deficits noted. [] Current Patient Data Vital Signs Vital Signs Date Time Temp Pulse Resp B/P (MAP) Pulse Ox O2 Delivery O2 Flow Rate FiO2 10/02/17 20:30 103.1 113 18 115/64 (81) 95 103.1 Lab Values Laboratory Tests Test 10/02/17 21:05 10/02/17 21:30 White Blood Count 5.0 x10^3/uL (4.0-11.0) Red Blood Count 6.73 x10^6/uL (3.50-5.40) H Hemoglobin 13.2 g/dL (12.0-15.5) Hematocrit 41.7 % (36.0-47.0) Mean Corpuscular Volume 62 fL (79-100) L Mean Corpuscular Hemoglobin 20 pg (25-35) L Mean Corpuscular Hemoglobin Concent 32 g/dL (31-37) Red Cell Distribution Width 18.6 % (11.5-14.5) H Platelet Count 85 x10^3/uL (140-400) L Neutrophils (%) (Auto) 93 % (31-73) H Lymphocytes (%) (Auto) 5 % (24-48) L Monocytes (%) (Auto) 2 % (0-9) Eosinophils (%) (Auto) 0 % (0-3) Basophils (%) (Auto) 0 % (0-3) Neutrophils # (Auto) 4.6 x10^3uL (1.8-7.7) Lymphocytes # (Auto) 0.2 x10^3/uL (1.0-4.8) L Monocytes # (Auto) 0.1 x10^3/uL (0.0-1.1) Eosinophils # (Auto) 0.0 x10^3/uL (0.0-0.7) Basophils # (Auto) 0.0 x10^3/uL (0.0-0.2) Segmented Neutrophils % 70 % (35-66) H Band Neutrophils % 23 % (0-9) H Lymphocytes % 3 % (24-48) L Monocytes % 4 % (0-10) Toxic Vacuolation Present Dohle Bodies Present Platelet Estimate Decreased (ADEQUATE) Hypochromasia Marked Poikilocytosis Slight Anisocytosis Slight Microcytosis Marked Erythrocyte Sedimentation Rate 15 (0-25) Sodium Level 132 mmol/L (136-145) L Potassium Level 2.5 mmol/L (3.5-5.1) *L Chloride Level 94 mmol/L (98-107) L Carbon Dioxide Level 28 mmol/L (21-32) Anion Gap 10 (6-14) Blood Urea Nitrogen 21 mg/dL (7-20) H Creatinine 1.5 mg/dL (0.6-1.0) H Estimated GFR (Cockcroft-Gault) 36.2 BUN/Creatinine Ratio 14 (6-20) Glucose Level 116 mg/dL (70-99) H Lactic Acid Level 2.4 mmol/L (0.4-2.0) H Calcium Level 8.6 mg/dL (8.5-10.1) Total Bilirubin 2.0 mg/dL (0.2-1.0) H Aspartate Amino Transferase (AST) 31 U/L (15-37) Alanine Aminotransferase (ALT) 27 U/L (14-59) Alkaline Phosphatase 113 U/L (46-116) C-Reactive Protein, Quantitative 183.9 mg/L (0-3.3) H Total Protein 7.1 g/dL (6.4-8.2) Albumin 3.0 g/dL (3.4-5.0) L Albumin/Globulin Ratio 0.7 (1.0-1.7) L Influenza Type A Antigen Negative (NEGATIVE) Influenza Type B Antigen Negative (NEGATIVE) Laboratory Tests 10/02/17 21:05 Laboratory Tests 10/02/17 21:05 EKG EKG [] Radiology/Procedures Radiology/Procedures [Chest x-ray: No acute cardiopulmonary process on preliminary ED reviewed.] Course & Med Decision Making Course & Med Decision Making Pertinent Labs and Imaging studies reviewed. (See chart for details) [Clinical sepsis without known source. Repeat IV fluids given. Broad-spectrum antibiotics given. Potassium replaced. Doctor Shaun to admit] Luke Disclaimer Luke Disclaimer This electronic medical record was generated, in whole or in part, using a voice recognition dictation system. Departure Departure Impression: Primary Impression: Sepsis Additional Impressions: Hypotension Hypokalemia Disposition: ADMITTED INPATIENT Admitting Physician: Violette Dunn Condition: CRITICAL Referrals: SAUNDRA DIAZ JR, MD (PCP) Problem Qualifiers JEREMY ARELLANO DO Oct 02, 2017 23:07
[2017-10-02] MEDS ORDERED: NOREPINEPHRIN PREMIX 250 ML IV PRN (23:15)
[2017-10-02 23:19] LABS: BILIRUBIN,URINE SMALL (NEG); GLUCOSE,URINE NEGATIVE (NEG); NITRITE,URINE NEGATIVE (NEG); PH,URINE 5.5; PROTEIN,URINE >=300 mg/dL (NEG-TRACE)
[2017-10-02 23:39] LABS: WBC,URINE >40 /HPF (0-4)
[2017-10-02 23:43] LABS: BACTERIA,URINE MANY /HPF (0-FEW)
[2017-10-03] VITALS (34 sets, daily range): BP systolic 63–188; BP diastolic 33–95
[2017-10-03] MEDS: DEXTROSE 5% IV SCH ×2 (00:58→02:35)
[2017-10-03] MEDS: POTASSIUM ACETATE IV SCH ×2 (00:58→02:35)
[2017-10-03] MEDS: VANCOMYCIN PER PHARMACY MC PRN ×2 (01:19→08:36)
[2017-10-03 03:50] LABS: BASO % 0 % (0-3); EOS % 0 % (0-3); HEMOGLOBIN 8.9 g/dL (12.0-15.5); LYMPH # 0.5 x10^3/uL (1.0-4.8); LYMPH % 4 % (24-48); MEAN CORPUSCULAR HEMOGLOBIN 20 pg (25-35); MEAN CORPUSCULAR HGB CONC 32 g/dL (31-37); MEAN CORPUSCULAR VOLUME 62 fL (79-100); MONO % 8 % (0-9); NEUT % 88 % (31-73); PLATELET COUNT 100 x10^3/uL (140-400); RED BLOOD COUNT 4.52 x10^6/uL (3.50-5.40); RED CELL DISTRIBUTION WIDTH 18.1 % (11.5-14.5); WHITE BLOOD COUNT 11.5 x10^3/uL (4.0-11.0)
[2017-10-03 04:12] LABS: ALBUMIN 2.4 g/dL (3.4-5.0); ALBUMIN/GLOBULIN RATIO 0.8 (1.0-1.7); CALCIUM 7.5 mg/dL (8.5-10.1); CREATININE 1.6 mg/dL (0.6-1.0); GFR 33.6; POTASSIUM 3.5 mmol/L (3.5-5.1); TOTAL BILIRUBIN 1.6 mg/dL (0.2-1.0); TOTAL PROTEIN 5.4 g/dL (6.4-8.2)
[2017-10-03] MEDS: ACETAMINOPHEN 325 MG TABLET. PO PRN ×2 (05:30→20:11)
[2017-10-03] MEDS ORDERED: ANAS1TAB3 PO (06:22)
--- NOTE | 2017-10-03 06:24 | EKG ---
[facility] [address] [place] [address] Test Date: 2017-10-02 Test Time: 21:49:01 Pat Name: [facility] Department: Room: 111 1 Gender: F Museum Technician: : [id number] Requested By: JEREMY ARELLANO Order Number: [id number] Reading MD: Alberto Price Measurements Intervals [place] Rate: 98 P: -31 [place]: 140 QRS: 14 QRSD: 88 T: 8 QT: 394 QTc: 505 Interpretive Statements SINUS RHYTHM QRS(T) CONTOUR ABNORMALITY CONSIDER ANTEROSEPTAL MYOCARDIAL DAMAGE PROLONGED QT POSSIBLY ABNORMAL ECG RI6.01 No previous ECG available for comparison Electronically Signed On 10-16-2017 13:49:01 NET MANAGER by Alberto Price
--- NOTE | 2017-10-03 08:47 | RAD ---
EXAM: Chest one view. HISTORY: Shortness of breath, cough, nausea/vomiting. COMPARISON: 02/27/2017. FINDINGS: A frontal view of the chest is obtained. A right internal jugular port catheter has its tip in the superior vena cava. There are no confluent infiltrates. There is no pneumothorax or pleural effusion. The heart is mildly enlarged. There are atherosclerotic calcifications of the aorta. IMPRESSION: 1. Mild cardiomegaly.
--- NOTE | 2017-10-03 09:02 | PDOC ---
Infectious Disease Note Vital Sign Vital Signs Vital Signs Date Time Temp Pulse Resp B/P (MAP) Pulse Ox O2 Delivery O2 Flow Rate FiO2 10/03/17 07:15 101 70/49 (56) 10/03/17 07:13 Room Air 10/03/17 07:00 101.5 34 96 2.0 101.5 Labs Lab Laboratory Tests Test 10/02/17 21:05 10/02/17 21:30 10/02/17 23:10 10/03/17 00:50 White Blood Count 5.0 x10^3/uL (4.0-11.0) Red Blood Count 6.73 x10^6/uL (3.50-5.40) Hemoglobin 13.2 g/dL (12.0-15.5) Hematocrit 41.7 % (36.0-47.0) Mean Corpuscular Volume 62 fL (79-100) Mean Corpuscular Hemoglobin 20 pg (25-35) Mean Corpuscular Hemoglobin Concent 32 g/dL (31-37) Red Cell Distribution Width 18.6 % (11.5-14.5) Platelet Count 85 x10^3/uL (140-400) Neutrophils (%) (Auto) 93 % (31-73) Lymphocytes (%) (Auto) 5 % (24-48) Monocytes (%) (Auto) 2 % (0-9) Eosinophils (%) (Auto) 0 % (0-3) Basophils (%) (Auto) 0 % (0-3) Neutrophils # (Auto) 4.6 x10^3uL (1.8-7.7) Lymphocytes # (Auto) 0.2 x10^3/uL (1.0-4.8) Monocytes # (Auto) 0.1 x10^3/uL (0.0-1.1) Eosinophils # (Auto) 0.0 x10^3/uL (0.0-0.7) Basophils # (Auto) 0.0 x10^3/uL (0.0-0.2) Segmented Neutrophils % 70 % (35-66) Band Neutrophils % 23 % (0-9) Lymphocytes % 3 % (24-48) Monocytes % 4 % (0-10) Toxic Vacuolation Present Dohle Bodies Present Platelet Estimate Decreased (ADEQUATE) Hypochromasia Marked Poikilocytosis Slight Anisocytosis Slight Microcytosis Marked Erythrocyte Sedimentation Rate 15 (0-25) Sodium Level 132 mmol/L (136-145) Potassium Level 2.5 mmol/L (3.5-5.1) Chloride Level 94 mmol/L (98-107) Carbon Dioxide Level 28 mmol/L (21-32) Anion Gap 10 (6-14) Blood Urea Nitrogen 21 mg/dL (7-20) Creatinine 1.5 mg/dL (0.6-1.0) Estimated GFR (Cockcroft-Gault) 36.2 BUN/Creatinine Ratio 14 (6-20) Glucose Level 116 mg/dL (70-99) Lactic Acid Level 2.4 mmol/L (0.4-2.0) 1.3 mmol/L (0.4-2.0) Calcium Level 8.6 mg/dL (8.5-10.1) Total Bilirubin 2.0 mg/dL (0.2-1.0) Aspartate Amino Transf (AST/SGOT) 31 U/L (15-37) Alanine Aminotransferase (ALT/SGPT) 27 U/L (14-59) Alkaline Phosphatase 113 U/L (46-116) C-Reactive Protein, Quantitative 183.9 mg/L (0-3.3) Total Protein 7.1 g/dL (6.4-8.2) Albumin 3.0 g/dL (3.4-5.0) Albumin/Globulin Ratio 0.7 (1.0-1.7) Influenza Type A Antigen Negative (NEGATIVE) Influenza Type B Antigen Negative (NEGATIVE) Urine Collection Type Unknown Urine Color [place] Urine Clarity Turbid Urine pH 5.5 Urine Specific [place] 1.020 Urine Protein >=300 mg/dL (NEG-TRACE) Urine Glucose (UA) Negative mg/dL (NEG) Urine Ketones (Stick) Trace mg/dL (NEG) Urine Blood Large (NEG) Urine Nitrite Negative (NEG) Urine Bilirubin Small (NEG) Urine Urobilinogen Dipstick 1.0 mg/dL (0.2 mg/dL) Urine Leukocyte Esterase Large (NEG) Urine RBC 1-2 /HPF (0-2) Urine WBC >40 /HPF (0-4) Urine Squamous Epithelial Cells None /LPF Urine Transitional Epithelial Cells Occ /LPF Urine Bacteria Many /HPF (0-FEW) Test 11/21/17 01:00 White Blood Count 11.5 x10^3/uL (4.0-11.0) Red Blood Count 4.52 x10^6/uL (3.50-5.40) Hemoglobin 8.9 g/dL (12.0-15.5) Hematocrit 28.0 % (36.0-47.0) Mean Corpuscular Volume 62 fL (79-100) Mean Corpuscular Hemoglobin 20 pg (25-35) Mean Corpuscular Hemoglobin Concent 32 g/dL (31-37) Red Cell Distribution Width 18.1 % (11.5-14.5) Platelet Count 100 x10^3/uL (140-400) Neutrophils (%) (Auto) 88 % (31-73) Lymphocytes (%) (Auto) 4 % (24-48) Monocytes (%) (Auto) 8 % (0-9) Eosinophils (%) (Auto) 0 % (0-3) Basophils (%) (Auto) 0 % (0-3) Neutrophils # (Auto) 10.1 x10^3uL (1.8-7.7) Lymphocytes # (Auto) 0.5 x10^3/uL (1.0-4.8) Monocytes # (Auto) 0.9 x10^3/uL (0.0-1.1) Eosinophils # (Auto) 0.0 x10^3/uL (0.0-0.7) Basophils # (Auto) 0.0 x10^3/uL (0.0-0.2) Sodium Level 135 mmol/L (136-145) Potassium Level 3.5 mmol/L (3.5-5.1) Chloride Level 99 mmol/L (98-107) Carbon Dioxide Level 24 mmol/L (21-32) Anion Gap 12 (6-14) Blood Urea Nitrogen 22 mg/dL (7-20) Creatinine 1.6 mg/dL (0.6-1.0) Estimated GFR (Cockcroft-Gault) 33.6 BUN/Creatinine Ratio 14 (6-20) Glucose Level 130 mg/dL (70-99) Calcium Level 7.5 mg/dL (8.5-10.1) Total Bilirubin 1.6 mg/dL (0.2-1.0) Aspartate Amino Transf (AST/SGOT) 25 U/L (15-37) Alanine Aminotransferase (ALT/SGPT) 21 U/L (14-59) Alkaline Phosphatase 82 U/L (46-116) Total Protein 5.4 g/dL (6.4-8.2) Albumin 2.4 g/dL (3.4-5.0) Albumin/Globulin Ratio 0.8 (1.0-1.7) Objective Assessment UTI with sepsis Hypotension on vasopressors Septic shock Breast ca on chemo Fever Plan Plan of Care vanc and zosyn check cultures supportive care d/w son at beside fluids SATNAM WHITTINGTON MD Oct 03, 2017 09:02
[2017-10-03] MEDS: IV NORMAL SALINE 1000ML BAG 1,000 ML IV SCH ×4 (09:04→17:30)
--- NOTE | 2017-10-03 10:22 | CONS ---
DATE OF CONSULTATION: 10/03/2017 REQUESTING PHYSICIAN: Dr. Dunn. REASON FOR CONSULTATION: Sepsis, septic shock. HISTORY OF PRESENT ILLNESS: This is a 56-year-old female who has a breast cancer who is undergoing chemotherapy, presented on Monday, started having fever and chills with painful urination. The patient had some nausea. In fact, she felt a little bit better on Monday and then gotten worse again, hence came in. The patient had temperature max of 103 fever, evidently 104 at home, not feeling well. The patient was found to have a very abnormal urinalysis. White count 11.5 volume depleted with acute renal failure. Lactic acid of 2.4. The patient has been started on vancomycin and Zosyn. Influenza screen negative. Chest x-ray, negative. The patient is currently on vasopressor support, although alert, awake, able to communicate through son, complaining of some nausea, but otherwise denies any vomiting, denies any diarrhea, denies any chest pain, shortness of breath, abdominal pain, urinary symptoms, headache, or visual symptoms. PAST MEDICAL HISTORY: Positive for metastatic breast cancer, on chemotherapy. The patient has had breast surgery done in the past. Normal echocardiogram in the past as per the ejection fraction. SOCIAL HISTORY: Negative for smoking, alcohol, illicit drug use. The patient lives with her son. ALLERGIES: No known drug allergies. CURRENT MEDICATIONS: Reviewed. The patient is on vancomycin and Zosyn. REVIEW OF SYSTEMS: As per HPI. All other systems reviewed are negative. PHYSICAL EXAMINATION: GENERAL: Alert, oriented female, not in distress. VITAL SIGNS: Temperature 101.5 with T-max 103. Rest of the vitals are stable. Blood pressure is 70 systolic with vasopressor support. HEENT: NAD. NECK: Supple, no JVP, no lymphadenopathy. LUNGS: Clear. HEART: S1, S2 regular. ABDOMEN: Benign. EXTREMITIES: No edema, cyanosis. SKIN: Unremarkable. The patient has a Port-A-Cath in the right upper chest. LABORATORY DATA: White count is 11.5, platelets are 100,000. BUN and creatinine 22 and 1.6. Urinalysis showed more than 40 WBC. Urine culture and blood cultures are pending. IMPRESSION: 1. Urinary tract infection with sepsis. 2. Septic shock. 3. Hypotension, on vasopressor support. 4. Breast cancer, on chemotherapy. 5. Fever. 6. Leukocytosis. RECOMMENDATIONS: Recommend vancomycin and Zosyn, supportive care, more fluids. The patient has not received any significant fluids, at least we will do 3 liters of normal saline. We will check the urine and blood cultures and adjust. This patient also received one dose of Levaquin. Discussion with the patient's son done at the bedside. Thank you very much, Dr. Dunn for giving me the opportunity to participate in this patient's care. SATNAM WHITTINGTON MD DR: EDIE/brittaney JOB#: [id number] / [id number]
--- NOTE | 2017-10-03 14:31 | HP ---
ADMIT DATE: 10/02/2017 CHIEF COMPLAINT: Weakness, fever, decreased appetite, malaise, nausea. HISTORY OF PRESENT ILLNESS: The patient is a pleasant 56-year-old female who has metastatic breast cancer. She is on chemotherapy. Basically, she presented with probable sepsis. She has a fever. She is tachycardic. She is weak, nauseated. I have discussed the case with ER physician. We are going to admit the patient and give her IV antibiotics and consult ID and Oncology. PAST MEDICAL HISTORY: Metastatic breast cancer, hypertension, left mastectomy. ALLERGIES: None. FAMILY HISTORY: Diabetes. SOCIAL HISTORY: She does not drink, smoke or take drugs. MEDICATIONS: Reviewed. REVIEW OF SYSTEMS: GENERAL: She complains of fever and weakness. SKIN: No bruising, hair changes or rashes. EYES: No blurred, double or loss of vision. NOSE AND THROAT: No history of nosebleeds, hoarseness or sore throat. HEART: No history of palpitations, chest pain or shortness of breath on exertion. LUNGS: Denies cough, hemoptysis, wheezing or shortness of breath. GASTROINTESTINAL: Denies changes in appetite, nausea, vomiting, diarrhea or constipation. GENITOURINARY: No history of frequency, urgency, hesitancy or nocturia. NEUROLOGIC: Denies history of numbness, tingling, tremor or weakness. PSYCHIATRIC: No history of panic, anxiety or depression. ENDOCRINE: No history of heat or cold intolerance, polyuria or polydipsia. EXTREMITIES: Denies muscle weakness, joint pain, pain on walking or stiffness. PHYSICAL EXAMINATION: VITAL SIGNS: Temperature 101.5, pulse 100, respirations 25, blood pressure 157/95. GENERAL: She is awake, alert. Her son is present. HEART: Tachycardic, S1, S2. LUNGS: Slight crackles. ABDOMEN: Soft, distended. EXTREMITIES: 1+ edema. SKIN: No rashes. She does have alopecia. ENDOCRINE: No thyromegaly. LYMPHATICS: No cervical nodes. HEMATOPOIETIC: No bruising. LABORATORY DATA: White count 5, hemoglobin 13, platelets 85. Electrolytes: Sodium 132, potassium 2.5, chloride 94, bicarbonate 28, BUN 21, creatinine 1.5, glucose 116. ASSESSMENT AND PLAN: Sepsis in a middle-aged female who is receiving chemotherapy for breast cancer. The patient is being admitted. We will start broad spectrum antibiotics. Consult Infectious Disease, consult Oncology, replace her potassium, ICU monitoring. PROGNOSIS: Guarded. YOSHI ESTRELLA DO DR: ALMA/brittaney JOB#: [id number] / [id number]
[2017-10-03] MEDS ORDERED: VANCOMYCIN 1 GM in IV DEXTROSE 5% 250 ML IV SCH (23:30)
[2017-10-04] VITALS (21 sets, daily range): BP systolic 108–172; BP diastolic 70–98
--- NOTE | 2017-10-04 00:16 | CONS ---
DATE OF CONSULTATION: 10/03/2017 MEDICAL ONCOLOGY CONSULTATION REPORT CONSULTATION REQUESTED BY: Dr. Violette Dunn. REASON FOR CONSULTATION: Breast cancer, on chemotherapy. HISTORY OF PRESENTING ILLNESS: The patient is a 56-year-old female who was diagnosed with invasive ductal carcinoma of the left breast on 11/16/2016. ER positive, DC positive, HER-2/katelyn positive. She underwent left simple mastectomy and lymph node dissection on 12/07/[address] Ayush Morales. It was staged as a T3 N2a M0, stage 3A breast cancer. She received adjuvant chemotherapy with Adriamycin and Cytoxan followed by Taxol with Herceptin. She did quite well on chemotherapy. She completed Taxol on 05/25/2017 and she is currently on Herceptin given every 3 weeks along with anastrozole 1 mg daily. She was admitted to [facility] on 10/02/2017 with complaints of chills and she was noted to have urinary tract infection, sepsis and septic shock and she was admitted to the ICU. She had a fever of 103 degrees and painful urination. Infectious Disease was consulted and she was started on antibiotics. PAST MEDICAL HISTORY: Breast cancer as described above. SOCIAL HISTORY: No smoking or alcohol abuse. FAMILY HISTORY: Negative for breast cancer. REVIEW OF SYSTEMS: A 12-point review of system was performed. Pertinent positives are mentioned in the history of present illness. Rest of the system review is negative. PHYSICAL EXAMINATION: GENERAL APPEARANCE: The patient is a 56-year-old female who is in no acute cardiorespiratory distress. VITAL SIGNS: Blood pressure 99/67, temperature 99.1, heart rate 79. HEAD: Atraumatic, normocephalic. EYES: No icterus. NECK: Supple. CHEST: Bilaterally symmetrical. No crepitations or rhonchi heard. HEART: S1, S2 normal. ABDOMEN: Soft, nontender. CENTRAL NERVOUS SYSTEM: No focal deficits. LYMPHATICS: No lymphadenopathy. SKIN: No rashes. PSYCHOLOGIC: Mood and affect are appropriate. LABORATORY DATA: WBC 11.5, hemoglobin 8.9, platelet count 100. IMPRESSION AND PLAN: 1. T3 N2a M0 stage 3A invasive ductal carcinoma of the left breast diagnosed on 11/16/2016, status post left mastectomy and axillary lymph node dissection on 12/07/2016. ER positive, DC positive, HER-2/katelyn positive. She received adjuvant chemotherapy with Adriamycin, Cytoxan followed by Taxol with Herceptin. She is currently on anastrozole 1 mg daily and Herceptin every 3 weeks. I will continue to monitor. I have advised her to follow up upon discharge for continuation of treatment. 2. Sepsis. Appreciate Infectious Disease consultation: Management per Infectious Diseases. 3. Leukocytosis, reactive. 4. Anemia due to underlying sepsis. Monitor. 5. Thrombocytopenia due to sepsis. Her platelet count on 09/18/2017 was normal at 259. It dropped to 85,000 on 10/02/2017. No signs of bleeding. I will continue to monitor. KYM GAMBINO MD DR: JASON/brittaney JOB#: [id number] / [id number]
[2017-10-04] MEDS: ACETAMINOPHEN 325 MG TABLET. PO PRN ×2 (05:23→17:25)
[2017-10-04 06:15] LABS: BASO % 0 % (0-3); EOS % 1 % (0-3); HEMATOCRIT 26.5 % (36.0-47.0); HEMOGLOBIN 8.4 g/dL (12.0-15.5); LYMPH # 0.8 x10^3/uL (1.0-4.8); LYMPH % 7 % (24-48); MEAN CORPUSCULAR HEMOGLOBIN 20 pg (25-35); MEAN CORPUSCULAR HGB CONC 32 g/dL (31-37); MEAN CORPUSCULAR VOLUME 62 fL (79-100); MONO % 6 % (0-9); NEUT % 87 % (31-73); PLATELET COUNT 79 x10^3/uL (140-400); RED BLOOD COUNT 4.29 x10^6/uL (3.50-5.40); WHITE BLOOD COUNT 11.5 x10^3/uL (4.0-11.0)
[2017-10-04 06:30] LABS: CALCIUM 8.2 mg/dL (8.5-10.1); CREATININE 1.1 mg/dL (0.6-1.0); GFR 51.8; POTASSIUM 3.7 mmol/L (3.5-5.1)
--- NOTE | 2017-10-04 07:56 | PDOC ---
Infectious Disease Note Subjective Subjective feeling good, no complaints ROS ROS GEN: Denies fevers, chills, sweats HEENT: Denies blurred vision, sore throat CV: Denies chest pain RESP: Denies shortness of air, cough GI: Denies n/v/d NEURO: Denies confusion, dizziness MSK: Denies weakness, joint pain/swelling Vital Sign Vital Signs Vital Signs Date Time Temp Pulse Resp B/P (MAP) Pulse Ox O2 Delivery O2 Flow Rate FiO2 10/04/17 07:00 87 26 125/70 (88) 96 Room Air 10/04/17 04:00 100.1 100.1 10/03/17 14:00 2.0 Physical Exam PHYSICAL EXAM GENERAL: NAD, Alert HEENT: PERRL, OC/OP NECK: Supple, no JVD, no LN LUNGS: Clear HEART: S1S2, no gallop, no murmur ABD: Soft, NT, no organomegaly, no rebound EXT: No edema, no cyanosis SHOES SALESPERSON: Alert, oriented x 3, no focal neurologic deficit SKIN: No rash IV: ok Labs Lab Laboratory Tests Test 10/04/17 05:45 White Blood Count 11.5 x10^3/uL (4.0-11.0) Red Blood Count 4.29 x10^6/uL (3.50-5.40) Hemoglobin 8.4 g/dL (12.0-15.5) Hematocrit 26.5 % (36.0-47.0) Mean Corpuscular Volume 62 fL (79-100) Mean Corpuscular Hemoglobin 20 pg (25-35) Mean Corpuscular Hemoglobin Concent 32 g/dL (31-37) Red Cell Distribution Width 19.0 % (11.5-14.5) Platelet Count 79 x10^3/uL (140-400) Neutrophils (%) (Auto) 87 % (31-73) Lymphocytes (%) (Auto) 7 % (24-48) Monocytes (%) (Auto) 6 % (0-9) Eosinophils (%) (Auto) 1 % (0-3) Basophils (%) (Auto) 0 % (0-3) Neutrophils # (Auto) 10.0 x10^3uL (1.8-7.7) Lymphocytes # (Auto) 0.8 x10^3/uL (1.0-4.8) Monocytes # (Auto) 0.6 x10^3/uL (0.0-1.1) Eosinophils # (Auto) 0.1 x10^3/uL (0.0-0.7) Basophils # (Auto) 0.0 x10^3/uL (0.0-0.2) Sodium Level 138 mmol/L (136-145) Potassium Level 3.7 mmol/L (3.5-5.1) Chloride Level 107 mmol/L (98-107) Carbon Dioxide Level 21 mmol/L (21-32) Anion Gap 10 (6-14) Blood Urea Nitrogen 13 mg/dL (7-20) Creatinine 1.1 mg/dL (0.6-1.0) Estimated GFR (Cockcroft-Gault) 51.8 Glucose Level 103 mg/dL (70-99) Calcium Level 8.2 mg/dL (8.5-10.1) Micro BC g neg sabina Objective Assessment UTI with sepsis Hypotension on vasopressors Septic shock Breast ca on chemo Fever G neg sepsis POA Plan Plan of Care d/cvanc and cont zosyn check cultures supportive care d/w son at beside fluids SATNAM WHITTINGTON MD Oct 04, 2017 07:56
[2017-10-04 10:47] LABS: PLT ESTIMATE DECREASED (ADEQUATE)
[2017-10-04 10:51] LABS: ANISOCYTOSIS SLIGHT; HYPOCHROMIA MARKED; MICROCYTOSIS MARKED; POIKILOCYTOSIS MOD; TOXIC VACUOLATION PRESENT
--- NOTE | 2017-10-04 12:04 | PDOC ---
PROGRESS NOTES Subjective Subjective HPI - T3 N2a M0 stage 3A invasive ductal carcinoma of the left breast diagnosed on 11/16/2016, status post left mastectomy and axillary lymph node dissection on 12/07/2016 ROS - feels better, no CP Objective Objective Vital Signs Date Time Temp Pulse Resp B/P (MAP) Pulse Ox O2 Delivery O2 Flow Rate FiO2 10/04/17 10:00 83 24 121/72 (88) 95 Room Air 10/04/17 08:00 99.7 99.7 10/03/17 14:00 2.0 Intake and Output 10/04/17 07:00 Intake Total 4923 ml Output Total 2225 ml Balance 2698 ml Intake Oral 820 ml IV Total 4103 ml Output Urine Total 2225 ml # Voids 1 # Bowel Movements 5 Physical Exam Heart: Normal S1, Normal S2 General: Alert, Oriented X3, No acute distress Lungs: Clear to auscultation Neuro: Normal speech Psych/Mental Status: Mental status NL Assessment Assessment Problems Medical Problems: (1) Hypokalemia Status: Acute (2) Hypotension Status: Acute (3) Sepsis Status: Acute IMPRESSION AND PLAN: 1. T3 N2a M0 stage 3A invasive ductal carcinoma of the left breast diagnosed on 11/16/2016, status post left mastectomy and axillary lymph node dissection on 12/07/2016. ER positive, UT positive, HER-2/katelyn positive. She received adjuvant chemotherapy with Adriamycin, Cytoxan followed by Taxol with Herceptin. She is currently on anastrozole 1 mg daily and Herceptin every 3 weeks. I will continue to monitor. I have advised her to follow up upon discharge for continuation of treatment. 2. Sepsis. Appreciate Infectious Disease consultation: Management per Infectious Diseases. 3. Leukocytosis, reactive.11.5 4. Anemia due to underlying sepsis. Monitor. 5. Thrombocytopenia due to sepsis. Her platelet count on 09/18/2017 was normal at 259. It dropped to 85,000 on 10/02/2017 and 79,000 on 10/04/17. No signs of bleeding. Pls call if needed Comment Review of Relevant I have reviewed the following items keyona (where applicable) has been applied. Labs Laboratory Tests Test 10/02/17 21:05 10/02/17 21:30 10/02/17 23:10 10/03/17 00:40 White Blood Count 5.0 x10^3/uL (4.0-11.0) Red Blood Count 6.73 x10^6/uL (3.50-5.40) Hemoglobin 13.2 g/dL (12.0-15.5) Hematocrit 41.7 % (36.0-47.0) Mean Corpuscular Volume 62 fL (79-100) Mean Corpuscular Hemoglobin 20 pg (25-35) Mean Corpuscular Hemoglobin Concent 32 g/dL (31-37) Red Cell Distribution Width 18.6 % (11.5-14.5) Platelet Count 85 x10^3/uL (140-400) Neutrophils (%) (Auto) 93 % (31-73) Lymphocytes (%) (Auto) 5 % (24-48) Monocytes (%) (Auto) 2 % (0-9) Eosinophils (%) (Auto) 0 % (0-3) Basophils (%) (Auto) 0 % (0-3) Neutrophils # (Auto) 4.6 x10^3uL (1.8-7.7) Lymphocytes # (Auto) 0.2 x10^3/uL (1.0-4.8) Monocytes # (Auto) 0.1 x10^3/uL (0.0-1.1) Eosinophils # (Auto) 0.0 x10^3/uL (0.0-0.7) Basophils # (Auto) 0.0 x10^3/uL (0.0-0.2) Segmented Neutrophils % 70 % (35-66) Band Neutrophils % 23 % (0-9) Lymphocytes % 3 % (24-48) Monocytes % 4 % (0-10) Toxic Vacuolation Present Dohle Bodies Present Platelet Estimate Decreased (ADEQUATE) Hypochromasia Marked Poikilocytosis Slight Anisocytosis Slight Microcytosis Marked Erythrocyte Sedimentation Rate 15 (0-25) Sodium Level 132 mmol/L (136-145) Potassium Level 2.5 mmol/L (3.5-5.1) Chloride Level 94 mmol/L (98-107) Carbon Dioxide Level 28 mmol/L (21-32) Anion Gap 10 (6-14) Blood Urea Nitrogen 21 mg/dL (7-20) Creatinine 1.5 mg/dL (0.6-1.0) Estimated GFR (Cockcroft-Gault) 36.2 BUN/Creatinine Ratio 14 (6-20) Glucose Level 116 mg/dL (70-99) Lactic Acid Level 2.4 mmol/L (0.4-2.0) Calcium Level 8.6 mg/dL (8.5-10.1) Total Bilirubin 2.0 mg/dL (0.2-1.0) Aspartate Amino Transf (AST/SGOT) 31 U/L (15-37) Alanine Aminotransferase (ALT/SGPT) 27 U/L (14-59) Alkaline Phosphatase 113 U/L (46-116) C-Reactive Protein, Quantitative 183.9 mg/L (0-3.3) Total Protein 7.1 g/dL (6.4-8.2) Albumin 3.0 g/dL (3.4-5.0) Albumin/Globulin Ratio 0.7 (1.0-1.7) Influenza Type A Antigen Negative (NEGATIVE) Influenza Type B Antigen Negative (NEGATIVE) Urine Collection Type Unknown Urine Color [place] Urine Clarity Turbid Urine pH 5.5 Urine Specific [place] 1.020 Urine Protein >=300 mg/dL (NEG-TRACE) Urine Glucose (UA) Negative mg/dL (NEG) Urine Ketones (Stick) Trace mg/dL (NEG) Urine Blood Large (NEG) Urine Nitrite Negative (NEG) Urine Bilirubin Small (NEG) Urine Urobilinogen Dipstick 1.0 mg/dL (0.2 mg/dL) Urine Leukocyte Esterase Large (NEG) Urine RBC 1-2 /HPF (0-2) Urine WBC >40 /HPF (0-4) Urine Squamous Epithelial Cells None /LPF Urine Transitional Epithelial Cells Occ /LPF Urine Bacteria Many /HPF (0-FEW) Nasal Screen MRSA (PCR) Negative (Negative) Test 10/03/17 00:50 10/03/17 01:00 10/04/17 05:45 Lactic Acid Level 1.3 mmol/L (0.4-2.0) White Blood Count 11.5 x10^3/uL (4.0-11.0) 11.5 x10^3/uL (4.0-11.0) Red Blood Count 4.52 x10^6/uL (3.50-5.40) 4.29 x10^6/uL (3.50-5.40) Hemoglobin 8.9 g/dL (12.0-15.5) 8.4 g/dL (12.0-15.5) Hematocrit 28.0 % (36.0-47.0) 26.5 % (36.0-47.0) Mean Corpuscular Volume 62 fL (79-100) 62 fL (79-100) Mean Corpuscular Hemoglobin 20 pg (25-35) 20 pg (25-35) Mean Corpuscular Hemoglobin Concent 32 g/dL (31-37) 32 g/dL (31-37) Red Cell Distribution Width 18.1 % (11.5-14.5) 19.0 % (11.5-14.5) Platelet Count 100 x10^3/uL (140-400) 79 x10^3/uL (140-400) Neutrophils (%) (Auto) 88 % (31-73) 87 % (31-73) Lymphocytes (%) (Auto) 4 % (24-48) 7 % (24-48) Monocytes (%) (Auto) 8 % (0-9) 6 % (0-9) Eosinophils (%) (Auto) 0 % (0-3) 1 % (0-3) Basophils (%) (Auto) 0 % (0-3) 0 % (0-3) Neutrophils # (Auto) 10.1 x10^3uL (1.8-7.7) 10.0 x10^3uL (1.8-7.7) Lymphocytes # (Auto) 0.5 x10^3/uL (1.0-4.8) 0.8 x10^3/uL (1.0-4.8) Monocytes # (Auto) 0.9 x10^3/uL (0.0-1.1) 0.6 x10^3/uL (0.0-1.1) Eosinophils # (Auto) 0.0 x10^3/uL (0.0-0.7) 0.1 x10^3/uL (0.0-0.7) Basophils # (Auto) 0.0 x10^3/uL (0.0-0.2) 0.0 x10^3/uL (0.0-0.2) Sodium Level 135 mmol/L (136-145) 138 mmol/L (136-145) Potassium Level 3.5 mmol/L (3.5-5.1) 3.7 mmol/L (3.5-5.1) Chloride Level 99 mmol/L (98-107) 107 mmol/L (98-107) Carbon Dioxide Level 24 mmol/L (21-32) 21 mmol/L (21-32) Anion Gap 12 (6-14) 10 (6-14) Blood Urea Nitrogen 22 mg/dL (7-20) 13 mg/dL (7-20) Creatinine 1.6 mg/dL (0.6-1.0) 1.1 mg/dL (0.6-1.0) Estimated GFR (Cockcroft-Gault) 33.6 51.8 BUN/Creatinine Ratio 14 (6-20) Glucose Level 130 mg/dL (70-99) 103 mg/dL (70-99) Calcium Level 7.5 mg/dL (8.5-10.1) 8.2 mg/dL (8.5-10.1) Total Bilirubin 1.6 mg/dL (0.2-1.0) Aspartate Amino Transf (AST/SGOT) 25 U/L (15-37) Alanine Aminotransferase (ALT/SGPT) 21 U/L (14-59) Alkaline Phosphatase 82 U/L (46-116) Total Protein 5.4 g/dL (6.4-8.2) Albumin 2.4 g/dL (3.4-5.0) Albumin/Globulin Ratio 0.8 (1.0-1.7) Segmented Neutrophils % 83 % (35-66) Band Neutrophils % 5 % (0-9) Lymphocytes % 8 % (24-48) Atypical Lymphocytes % (Manual) 1 % (0-0) Monocytes % 3 % (0-10) Toxic Vacuolation Present Platelet Estimate Decreased (ADEQUATE) Hypochromasia Marked Poikilocytosis Mod Anisocytosis Slight Microcytosis Marked Laboratory Tests Test 10/04/17 05:45 White Blood Count 11.5 x10^3/uL (4.0-11.0) Red Blood Count 4.29 x10^6/uL (3.50-5.40) Hemoglobin 8.4 g/dL (12.0-15.5) Hematocrit 26.5 % (36.0-47.0) Mean Corpuscular Volume 62 fL (79-100) Mean Corpuscular Hemoglobin 20 pg (25-35) Mean Corpuscular Hemoglobin Concent 32 g/dL (31-37) Red Cell Distribution Width 19.0 % (11.5-14.5) Platelet Count 79 x10^3/uL (140-400) Neutrophils (%) (Auto) 87 % (31-73) Lymphocytes (%) (Auto) 7 % (24-48) Monocytes (%) (Auto) 6 % (0-9) Eosinophils (%) (Auto) 1 % (0-3) Basophils (%) (Auto) 0 % (0-3) Neutrophils # (Auto) 10.0 x10^3uL (1.8-7.7) Lymphocytes # (Auto) 0.8 x10^3/uL (1.0-4.8) Monocytes # (Auto) 0.6 x10^3/uL (0.0-1.1) Eosinophils # (Auto) 0.1 x10^3/uL (0.0-0.7) Basophils # (Auto) 0.0 x10^3/uL (0.0-0.2) Segmented Neutrophils % 83 % (35-66) Band Neutrophils % 5 % (0-9) Lymphocytes % 8 % (24-48) Atypical Lymphocytes % (Manual) 1 % (0-0) Monocytes % 3 % (0-10) Toxic Vacuolation Present Platelet Estimate Decreased (ADEQUATE) Hypochromasia Marked Poikilocytosis Mod Anisocytosis Slight Microcytosis Marked Sodium Level 138 mmol/L (136-145) Potassium Level 3.7 mmol/L (3.5-5.1) Chloride Level 107 mmol/L (98-107) Carbon Dioxide Level 21 mmol/L (21-32) Anion Gap 10 (6-14) Blood Urea Nitrogen 13 mg/dL (7-20) Creatinine 1.1 mg/dL (0.6-1.0) Estimated GFR (Cockcroft-Gault) 51.8 Glucose Level 103 mg/dL (70-99) Calcium Level 8.2 mg/dL (8.5-10.1) Microbiology 10/03/17 Blood Culture - Preliminary, Resulted NO GROWTH AFTER 1 DAY Medications Current Medications Ketorolac Tromethamine (Toradol) 15 mg 1X ONCE IV Last administered on t 21:38; Start 10/02/17 at 21:15; Stop 10/02/17 at 21:19; Status DC Sodium Chloride 1,000 ml @ 1,000 mls/hr 1X ONCE IV Last administered on 10/02 21:27; Start 10/02/17 at 21:30; Stop 10/02/17 at 22:29; Status DC Potassium Chloride/Sodium Chloride 1,000 ml @ 75 mls/hr 1X ONCE IV Last administered on 10/03/17 01:12; Start 10/02/17 at 22:15; Stop 10/03/17 at 11 :34; Status DC Potassium Chloride (Klor-Con) 40 meq 1X ONCE PO Last administered on 22:42; Start 10/02/17 at 22:00; Stop 10/02/17 at 22:09; Status DC Piperacillin Sod/ Tazobactam Sod 3.375 gm/Dextrose 50 ml @ 100 mls/hr 1X ONCE IV ; Start 10/02/17 at 22:00; Stop 10/02/17 at 22:29; Status UNV Piperacillin Sod/ Tazobactam Sod (Zosyn) 3.375 gm ONCE IVP ; Start 10/02/17 at 22:15; Stop 10/02/17 at 22:49; Status DC Ketorolac Tromethamine (Toradol) 30 mg 1X ONCE IV ; Start 10/02/17 at 22:30; Stop 10/02/17 at 22:31; Status DC Vancomycin HCl 250 ml @ 250 mls/hr 1X ONCE IV ; Start 10/02/17 at 22:30; Stop 10/02/17 at 23:29; Status UNV Levofloxacin/ Dextrose 150 ml @ 100 mls/hr 1X ONCE IV Last administered on 23:49; Start 10/02/17 at 22:30; Stop 10/02/17 at 23:59; Status DC Potassium Chloride 40 meq/ Sodium Chloride 1,020 ml @ 1,000 mls/hr 1X ONCE IV Last administered on 10/02/17 22:59; Start 10/02/17 at 22:45; Stop at 23:46; Status DC Ondansetron HCl (Zofran) 4 mg PRN Q8HRS PRN IV NAUSEA/VOMITING Last administered on 10/03/17 00:56; Start 10/02/17 at 22:45; Stop 10/03/17 at 22 :44; Status DC Piperacillin Sod/ Tazobactam Sod (Zosyn) 3.375 gm ONCE ONCE IVP Last administered on 10/02/17 22:52; Start 10/02/17 at 23:00; Stop 10/02/17 at 23 :01; Status DC Vancomycin HCl (Vanco Per Pharmacy) 1 each PRN DAILY PRN MC SEE COMMENTS Last administered on 10/03/17 08:36; Start 10/02/17 at 23:00; Stop 10/04/17 at 07 :57; Status DC Vancomycin HCl 1.5 gm/Sodium Chloride 500 ml @ 250 mls/hr 1X ONCE IV Last administered on 10/02/17 23:48; Start 10/02/17 at 23:00; Stop 10/03/17 at 00 :59; Status DC Potassium Acetate 20 meq/Dextrose 110 ml @ 55 mls/hr Q2H IV Last administered on 10/03/17 02:35; Start 10/02/17 at 23:30; Stop 10/03/17 at 03:29; Status DC Norepinephrine Bitartrate 250 ml @ 0 mls/hr CONT PRN IV SEE I/O RECORD Last administered on 10/02/17 23:56; Start 10/02/17 at 23:15 Vancomycin HCl 1 gm/Dextrose 250 ml @ 250 mls/hr Q24H IV Last administered on 10/03/17 23:19; Start 10/03/17 at 23:30; Stop 10/04/17 at 07:57; Status DC Vancomycin HCl 1 each 1X ONCE MC ; Start 10/04/17 at 23:00; Stop 10/04/17 at 23:00; Status DC Acetaminophen (Tylenol) 650 mg PRN Q6HRS PRN PO FEVER Last administered on 05:23; Start 10/03/17 at 05:30 Sodium Chloride 1,000 ml @ 1,000 mls/hr Q1HR IV Last administered on 12:30; Start 10/03/17 at 09:00; Stop 10/03/17 at 11:59; Status DC Sodium Chloride 1,000 ml @ 75 mls/hr [id number] IV Last administered on t 17:30; Start 10/03/17 at 17:30 Piperacillin Sod/ Tazobactam Sod (Zosyn) 3.375 gm Q6HRS IVP ; Start 10/04/17 at 09:00 Active Scripts Active Reported Arimidex (Anastrozole) 1 Mg Tablet 1 Tab PO DAILY Carvedilol 12.5 Mg Tablet 1 Tab PO DAILY Vitals/I & O Vital Sign - Last 24 Hours 10/03/17 10/03/17 10/03/17 10/03/17 12:08 13:00 14:00 15:00 Temp 99.4 99.4 Pulse 78 84 82 76 Resp 21 B/P (MAP) 99/67 (78) 100/63 (75) 101/67 (78) 104/72 (83) Pulse Ox 97 98 96 95 O2 Delivery Nasal Cannula Nasal Cannula Nasal Cannula Room Air O2 Flow Rate 2.0 2.0 2.0 10/03/17 10/03/17 10/03/17 10/03/17 16:00 16:00 17:00 18:00 Pulse 84 88 91 Resp 29 B/P (MAP) 113/75 (88) 121/78 (92) 143/74 (97) Pulse Ox 98 98 95 O2 Delivery Room Air Room Air Room Air Room Air 10/03/17 10/03/17 10/03/17 10/03/17 19:00 20:00 20:00 21:00 Temp 100.5 100.5 Pulse 94 99 94 Resp 25 B/P (MAP) 131/76 (94) 132/73 (92) Pulse Ox 96 96 96 O2 Delivery Room Air Room Air Room Air Room Air 10/03/17 10/03/17 10/04/17 10/04/17 22:00 23:00 00:00 00:00 Temp 99.5 99.5 Pulse 92 88 82 Resp 25 23 B/P (MAP) 102/60 (74) 106/59 (75) 122/71 (88) Pulse Ox 95 96 96 O2 Delivery Room Air Room Air Room Air Room Air 10/04/17 10/04/17 10/04/17 10/04/17 01:00 02:00 03:00 04:00 Pulse 82 86 86 Resp 28 B/P (MAP) 108/71 (83) 119/73 (88) 119/80 (93) Pulse Ox 95 95 95 O2 Delivery Room Air Room Air Room Air Room Air 10/04/17 10/04/17 10/04/17 10/04/17 04:00 05:00 06:00 07:00 Temp 100.1 100.1 Pulse 96 95 90 87 Resp 35 31 25 26 B/P (MAP) 148/80 (102) 154/77 (102) 117/70 (86) 125/70 (88) Pulse Ox 96 94 93 96 O2 Delivery Room Air Room Air Room Air Room Air 10/04/17 10/04/17 10/04/17 08:00 09:00 10:00 Temp 99.7 99.7 Pulse 84 80 83 Resp 24 22 24 B/P (MAP) 136/87 (103) 140/84 (102) 121/72 (88) Pulse Ox 97 95 95 O2 Delivery Room Air Room Air Room Air Intake and Output 10/03/17 10/03/17 10/04/17 15:00 23:00 07:00 Intake Total 3120 ml 136 ml 1667 ml Output Total 300 ml 875 ml 1050 ml Balance 2820 ml -739 ml 617 ml KYM GAMBINO MD Oct 04, 2017 12:04
[2017-10-04] MEDS: PIPERACILLIN/TAZO IV Push 3.375 GM VIAL. IVP SCH ×2 (14:40→17:25)
--- NOTE | 2017-10-04 16:15 | PDOC ---
PROGRESS NOTES Chief Complaint Chief Complaint Sepsis Fever Hypotension Anemia Breast cancer Hypertension History of Present Illness History of Present Illness Pt seen and examined at bedside, A&Ox3 d/c levophed, BP's stable c/o poor appetite Pt. desires discharge Vitals Vitals Vital Signs Date Time Temp Pulse Resp B/P (MAP) Pulse Ox O2 Delivery O2 Flow Rate FiO2 10/04/17 15:00 94 22 156/83 (107) 96 Room Air 10/04/17 12:00 98.8 98.8 10/03/17 14:00 2.0 Physical Exam General: Alert, Oriented X3, Cooperative, No acute distress Heart: Normal S1, Normal S2 Lungs: Clear, Other (No wheezes or crackles) Abdomen: Normal bowel sounds, No tenderness Extremities: No clubbing, No edema Skin: No rashes, No significant lesion Labs LABS Laboratory Tests Test 10/04/17 05:45 White Blood Count 11.5 x10^3/uL (4.0-11.0) Red Blood Count 4.29 x10^6/uL (3.50-5.40) Hemoglobin 8.4 g/dL (12.0-15.5) Hematocrit 26.5 % (36.0-47.0) Mean Corpuscular Volume 62 fL (79-100) Mean Corpuscular Hemoglobin 20 pg (25-35) Mean Corpuscular Hemoglobin Concent 32 g/dL (31-37) Red Cell Distribution Width 19.0 % (11.5-14.5) Platelet Count 79 x10^3/uL (140-400) Neutrophils (%) (Auto) 87 % (31-73) Lymphocytes (%) (Auto) 7 % (24-48) Monocytes (%) (Auto) 6 % (0-9) Eosinophils (%) (Auto) 1 % (0-3) Basophils (%) (Auto) 0 % (0-3) Neutrophils # (Auto) 10.0 x10^3uL (1.8-7.7) Lymphocytes # (Auto) 0.8 x10^3/uL (1.0-4.8) Monocytes # (Auto) 0.6 x10^3/uL (0.0-1.1) Eosinophils # (Auto) 0.1 x10^3/uL (0.0-0.7) Basophils # (Auto) 0.0 x10^3/uL (0.0-0.2) Segmented Neutrophils % 83 % (35-66) Band Neutrophils % 5 % (0-9) Lymphocytes % 8 % (24-48) Atypical Lymphocytes % (Manual) 1 % (0-0) Monocytes % 3 % (0-10) Toxic Vacuolation Present Platelet Estimate Decreased (ADEQUATE) Hypochromasia Marked Poikilocytosis Mod Anisocytosis Slight Microcytosis Marked Sodium Level 138 mmol/L (136-145) Potassium Level 3.7 mmol/L (3.5-5.1) Chloride Level 107 mmol/L (98-107) Carbon Dioxide Level 21 mmol/L (21-32) Anion Gap 10 (6-14) Blood Urea Nitrogen 13 mg/dL (7-20) Creatinine 1.1 mg/dL (0.6-1.0) Estimated GFR (Cockcroft-Gault) 51.8 Glucose Level 103 mg/dL (70-99) Calcium Level 8.2 mg/dL (8.5-10.1) Review of Systems Review of Systems Denies: F/C, N/V, fatigue Assessment and Plan Assessmemt and Plan Problems Medical Problems: (1) Hypokalemia Status: Acute (2) Hypotension Status: Acute (3) Sepsis Status: Acute Assessment: Sepsis Fever Hypotension Anemia Breast cancer Hypertension Plan: Possible d/c if okay with ID Continue Abx per ID Continue home medications PT/OT Ordered Recheck labs in am Problems: Comment Review of Relevant I have reviewed the following items keyona (where applicable) has been applied. Labs Laboratory Tests Test 10/02/17 21:05 10/02/17 21:30 10/02/17 23:10 10/03/17 00:40 White Blood Count 5.0 x10^3/uL (4.0-11.0) Red Blood Count 6.73 x10^6/uL (3.50-5.40) Hemoglobin 13.2 g/dL (12.0-15.5) Hematocrit 41.7 % (36.0-47.0) Mean Corpuscular Volume 62 fL (79-100) Mean Corpuscular Hemoglobin 20 pg (25-35) Mean Corpuscular Hemoglobin Concent 32 g/dL (31-37) Red Cell Distribution Width 18.6 % (11.5-14.5) Platelet Count 85 x10^3/uL (140-400) Neutrophils (%) (Auto) 93 % (31-73) Lymphocytes (%) (Auto) 5 % (24-48) Monocytes (%) (Auto) 2 % (0-9) Eosinophils (%) (Auto) 0 % (0-3) Basophils (%) (Auto) 0 % (0-3) Neutrophils # (Auto) 4.6 x10^3uL (1.8-7.7) Lymphocytes # (Auto) 0.2 x10^3/uL (1.0-4.8) Monocytes # (Auto) 0.1 x10^3/uL (0.0-1.1) Eosinophils # (Auto) 0.0 x10^3/uL (0.0-0.7) Basophils # (Auto) 0.0 x10^3/uL (0.0-0.2) Segmented Neutrophils % 70 % (35-66) Band Neutrophils % 23 % (0-9) Lymphocytes % 3 % (24-48) Monocytes % 4 % (0-10) Toxic Vacuolation Present Dohle Bodies Present Platelet Estimate Decreased (ADEQUATE) Hypochromasia Marked Poikilocytosis Slight Anisocytosis Slight Microcytosis Marked Erythrocyte Sedimentation Rate 15 (0-25) Sodium Level 132 mmol/L (136-145) Potassium Level 2.5 mmol/L (3.5-5.1) Chloride Level 94 mmol/L (98-107) Carbon Dioxide Level 28 mmol/L (21-32) Anion Gap 10 (6-14) Blood Urea Nitrogen 21 mg/dL (7-20) Creatinine 1.5 mg/dL (0.6-1.0) Estimated GFR (Cockcroft-Gault) 36.2 BUN/Creatinine Ratio 14 (6-20) Glucose Level 116 mg/dL (70-99) Lactic Acid Level 2.4 mmol/L (0.4-2.0) Calcium Level 8.6 mg/dL (8.5-10.1) Total Bilirubin 2.0 mg/dL (0.2-1.0) Aspartate Amino Transf (AST/SGOT) 31 U/L (15-37) Alanine Aminotransferase (ALT/SGPT) 27 U/L (14-59) Alkaline Phosphatase 113 U/L (46-116) C-Reactive Protein, Quantitative 183.9 mg/L (0-3.3) Total Protein 7.1 g/dL (6.4-8.2) Albumin 3.0 g/dL (3.4-5.0) Albumin/Globulin Ratio 0.7 (1.0-1.7) Influenza Type A Antigen Negative (NEGATIVE) Influenza Type B Antigen Negative (NEGATIVE) Urine Collection Type Unknown Urine Color [place] Urine Clarity Turbid Urine pH 5.5 Urine Specific [place] 1.020 Urine Protein >=300 mg/dL (NEG-TRACE) Urine Glucose (UA) Negative mg/dL (NEG) Urine Ketones (Stick) Trace mg/dL (NEG) Urine Blood Large (NEG) Urine Nitrite Negative (NEG) Urine Bilirubin Small (NEG) Urine Urobilinogen Dipstick 1.0 mg/dL (0.2 mg/dL) Urine Leukocyte Esterase Large (NEG) Urine RBC 1-2 /HPF (0-2) Urine WBC >40 /HPF (0-4) Urine Squamous Epithelial Cells None /LPF Urine Transitional Epithelial Cells Occ /LPF Urine Bacteria Many /HPF (0-FEW) Nasal Screen MRSA (PCR) Negative (Negative) Test 10/03/17 00:50 10/03/17 01:00 10/04/17 05:45 Lactic Acid Level 1.3 mmol/L (0.4-2.0) White Blood Count 11.5 x10^3/uL (4.0-11.0) 11.5 x10^3/uL (4.0-11.0) Red Blood Count 4.52 x10^6/uL (3.50-5.40) 4.29 x10^6/uL (3.50-5.40) Hemoglobin 8.9 g/dL (12.0-15.5) 8.4 g/dL (12.0-15.5) Hematocrit 28.0 % (36.0-47.0) 26.5 % (36.0-47.0) Mean Corpuscular Volume 62 fL (79-100) 62 fL (79-100) Mean Corpuscular Hemoglobin 20 pg (25-35) 20 pg (25-35) Mean Corpuscular Hemoglobin Concent 32 g/dL (31-37) 32 g/dL (31-37) Red Cell Distribution Width 18.1 % (11.5-14.5) 19.0 % (11.5-14.5) Platelet Count 100 x10^3/uL (140-400) 79 x10^3/uL (140-400) Neutrophils (%) (Auto) 88 % (31-73) 87 % (31-73) Lymphocytes (%) (Auto) 4 % (24-48) 7 % (24-48) Monocytes (%) (Auto) 8 % (0-9) 6 % (0-9) Eosinophils (%) (Auto) 0 % (0-3) 1 % (0-3) Basophils (%) (Auto) 0 % (0-3) 0 % (0-3) Neutrophils # (Auto) 10.1 x10^3uL (1.8-7.7) 10.0 x10^3uL (1.8-7.7) Lymphocytes # (Auto) 0.5 x10^3/uL (1.0-4.8) 0.8 x10^3/uL (1.0-4.8) Monocytes # (Auto) 0.9 x10^3/uL (0.0-1.1) 0.6 x10^3/uL (0.0-1.1) Eosinophils # (Auto) 0.0 x10^3/uL (0.0-0.7) 0.1 x10^3/uL (0.0-0.7) Basophils # (Auto) 0.0 x10^3/uL (0.0-0.2) 0.0 x10^3/uL (0.0-0.2) Sodium Level 135 mmol/L (136-145) 138 mmol/L (136-145) Potassium Level 3.5 mmol/L (3.5-5.1) 3.7 mmol/L (3.5-5.1) Chloride Level 99 mmol/L (98-107) 107 mmol/L (98-107) Carbon Dioxide Level 24 mmol/L (21-32) 21 mmol/L (21-32) Anion Gap 12 (6-14) 10 (6-14) Blood Urea Nitrogen 22 mg/dL (7-20) 13 mg/dL (7-20) Creatinine 1.6 mg/dL (0.6-1.0) 1.1 mg/dL (0.6-1.0) Estimated GFR (Cockcroft-Gault) 33.6 51.8 BUN/Creatinine Ratio 14 (6-20) Glucose Level 130 mg/dL (70-99) 103 mg/dL (70-99) Calcium Level 7.5 mg/dL (8.5-10.1) 8.2 mg/dL (8.5-10.1) Total Bilirubin 1.6 mg/dL (0.2-1.0) Aspartate Amino Transf (AST/SGOT) 25 U/L (15-37) Alanine Aminotransferase (ALT/SGPT) 21 U/L (14-59) Alkaline Phosphatase 82 U/L (46-116) Total Protein 5.4 g/dL (6.4-8.2) Albumin 2.4 g/dL (3.4-5.0) Albumin/Globulin Ratio 0.8 (1.0-1.7) Segmented Neutrophils % 83 % (35-66) Band Neutrophils % 5 % (0-9) Lymphocytes % 8 % (24-48) Atypical Lymphocytes % (Manual) 1 % (0-0) Monocytes % 3 % (0-10) Toxic Vacuolation Present Platelet Estimate Decreased (ADEQUATE) Hypochromasia Marked Poikilocytosis Mod Anisocytosis Slight Microcytosis Marked Laboratory Tests Test 10/04/17 05:45 White Blood Count 11.5 x10^3/uL (4.0-11.0) Red Blood Count 4.29 x10^6/uL (3.50-5.40) Hemoglobin 8.4 g/dL (12.0-15.5) Hematocrit 26.5 % (36.0-47.0) Mean Corpuscular Volume 62 fL (79-100) Mean Corpuscular Hemoglobin 20 pg (25-35) Mean Corpuscular Hemoglobin Concent 32 g/dL (31-37) Red Cell Distribution Width 19.0 % (11.5-14.5) Platelet Count 79 x10^3/uL (140-400) Neutrophils (%) (Auto) 87 % (31-73) Lymphocytes (%) (Auto) 7 % (24-48) Monocytes (%) (Auto) 6 % (0-9) Eosinophils (%) (Auto) 1 % (0-3) Basophils (%) (Auto) 0 % (0-3) Neutrophils # (Auto) 10.0 x10^3uL (1.8-7.7) Lymphocytes # (Auto) 0.8 x10^3/uL (1.0-4.8) Monocytes # (Auto) 0.6 x10^3/uL (0.0-1.1) Eosinophils # (Auto) 0.1 x10^3/uL (0.0-0.7) Basophils # (Auto) 0.0 x10^3/uL (0.0-0.2) Segmented Neutrophils % 83 % (35-66) Band Neutrophils % 5 % (0-9) Lymphocytes % 8 % (24-48) Atypical Lymphocytes % (Manual) 1 % (0-0) Monocytes % 3 % (0-10) Toxic Vacuolation Present Platelet Estimate Decreased (ADEQUATE) Hypochromasia Marked Poikilocytosis Mod Anisocytosis Slight Microcytosis Marked Sodium Level 138 mmol/L (136-145) Potassium Level 3.7 mmol/L (3.5-5.1) Chloride Level 107 mmol/L (98-107) Carbon Dioxide Level 21 mmol/L (21-32) Anion Gap 10 (6-14) Blood Urea Nitrogen 13 mg/dL (7-20) Creatinine 1.1 mg/dL (0.6-1.0) Estimated GFR (Cockcroft-Gault) 51.8 Glucose Level 103 mg/dL (70-99) Calcium Level 8.2 mg/dL (8.5-10.1) Microbiology 10/03/17 Blood Culture - Preliminary, Resulted NO GROWTH AFTER 1 DAY 10/02/17 Urine Culture - Preliminary, Resulted 10/02/17 Urine Culture Result 1 (DELVIS) - Preliminary, Resulted Medications Current Medications Ketorolac Tromethamine (Toradol) 15 mg 1X ONCE IV Last administered on 21:38; Start 10/02/17 at 21:15; Stop 10/02/17 at 21:19; Status DC Sodium Chloride 1,000 ml @ 1,000 mls/hr 1X ONCE IV Last administered on 10/02 21:27; Start 10/02/17 at 21:30; Stop 10/02/17 at 22:29; Status DC Potassium Chloride/Sodium Chloride 1,000 ml @ 75 mls/hr 1X ONCE IV Last administered on 10/03/17 01:12; Start 10/02/17 at 22:15; Stop 10/03/17 at 11 :34; Status DC Potassium Chloride (Klor-Con) 40 meq 1X ONCE PO Last administered on 22:42; Start 10/02/17 at 22:00; Stop 10/02/17 at 22:09; Status DC Piperacillin Sod/ Tazobactam Sod 3.375 gm/Dextrose 50 ml @ 100 mls/hr 1X ONCE IV ; Start 10/02/17 at 22:00; Stop 10/02/17 at 22:29; Status UNV Piperacillin Sod/ Tazobactam Sod (Zosyn) 3.375 gm ONCE IVP ; Start 10/02/17 at 22:15; Stop 10/02/17 at 22:49; Status DC Ketorolac Tromethamine (Toradol) 30 mg 1X ONCE IV ; Start 10/02/17 at 22:30; Stop 10/02/17 at 22:31; Status DC Vancomycin HCl 250 ml @ 250 mls/hr 1X ONCE IV ; Start 10/02/17 at 22:30; Stop 10/02/17 at 23:29; Status UNV Levofloxacin/ Dextrose 150 ml @ 100 mls/hr 1X ONCE IV Last administered on 23:49; Start 10/02/17 at 22:30; Stop 10/02/17 at 23:59; Status DC Potassium Chloride 40 meq/ Sodium Chloride 1,020 ml @ 1,000 mls/hr 1X ONCE IV Last administered on 10/02/17 22:59; Start 10/02/17 at 22:45; Stop at 23:46; Status DC Ondansetron HCl (Zofran) 4 mg PRN Q8HRS PRN IV NAUSEA/VOMITING Last administered on 10/03/17 00:56; Start 10/02/17 at 22:45; Stop 10/03/17 at 22 :44; Status DC Piperacillin Sod/ Tazobactam Sod (Zosyn) 3.375 gm ONCE ONCE IVP Last administered on 10/02/17 22:52; Start 10/02/17 at 23:00; Stop 10/02/17 at 23 :01; Status DC Vancomycin HCl (Vanco Per Pharmacy) 1 each PRN DAILY PRN MC SEE COMMENTS Last administered on 10/03/17 08:36; Start 10/02/17 at 23:00; Stop 10/04/17 at 07 :57; Status DC Vancomycin HCl 1.5 gm/Sodium Chloride 500 ml @ 250 mls/hr 1X ONCE IV Last administered on 10/02/17 23:48; Start 10/02/17 at 23:00; Stop 10/03/17 at 00 :59; Status DC Potassium Acetate 20 meq/Dextrose 110 ml @ 55 mls/hr Q2H IV Last administered on 10/03/17 02:35; Start 10/02/17 at 23:30; Stop 10/03/17 at 03:29; Status DC Norepinephrine Bitartrate 250 ml @ 0 mls/hr CONT PRN IV SEE I/O RECORD Last administered on 10/02/17 23:56; Start 10/02/17 at 23:15 Vancomycin HCl 1 gm/Dextrose 250 ml @ 250 mls/hr Q24H IV Last administered on 10/03/17 23:19; Start 10/03/17 at 23:30; Stop 10/04/17 at 07:57; Status DC Vancomycin HCl 1 each 1X ONCE MC ; Start 10/04/17 at 23:00; Stop 10/04/17 at 23:00; Status DC Acetaminophen (Tylenol) 650 mg PRN Q6HRS PRN PO FEVER Last administered on 05:23; Start 10/03/17 at 05:30 Sodium Chloride 1,000 ml @ 1,000 mls/hr Q1HR IV Last administered on 12:30; Start 10/03/17 at 09:00; Stop 10/03/17 at 11:59; Status DC Sodium Chloride 1,000 ml @ 75 mls/hr [id number] IV Last administered on 17:30; Start 10/03/17 at 17:30 Piperacillin Sod/ Tazobactam Sod (Zosyn) 3.375 gm Q6HRS IVP Last administered on 10/04/17 14:40; Start 10/04/17 at 09:00 Active Scripts Active Reported Arimidex (Anastrozole) 1 Mg Tablet 1 Tab PO DAILY Carvedilol 12.5 Mg Tablet 1 Tab PO DAILY Vitals/I & O Vital Sign - Last 24 Hours 10/03/17 10/03/17 10/03/17 10/03/17 17:00 18:00 19:00 20:00 Temp 100.5 100.5 Pulse 88 91 94 99 Resp 28 29 33 26 B/P (MAP) 121/78 (92) 143/74 (97) 131/76 (94) Pulse Ox 98 95 96 96 O2 Delivery Room Air Room Air Room Air Room Air 10/03/17 10/03/17 10/03/17 10/03/17 20:00 21:00 22:00 23:00 Pulse 94 92 88 Resp 25 26 25 B/P (MAP) 132/73 (92) 102/60 (74) 106/59 (75) Pulse Ox 96 95 96 O2 Delivery Room Air Room Air Room Air Room Air 10/04/17 10/04/17 10/04/17 10/04/17 00:00 00:00 01:00 02:00 Temp 99.5 99.5 Pulse 82 82 86 Resp 23 26 27 B/P (MAP) 122/71 (88) 108/71 (83) 119/73 (88) Pulse Ox 96 95 95 O2 Delivery Room Air Room Air Room Air Room Air 10/04/17 10/04/17 10/04/17 10/04/17 03:00 04:00 04:00 05:00 Temp 100.1 100.1 Pulse 86 96 95 Resp 28 35 31 B/P (MAP) 119/80 (93) 148/80 (102) 154/77 (102) Pulse Ox 95 96 94 O2 Delivery Room Air Room Air Room Air Room Air 10/04/17 10/04/17 10/04/17 10/04/17 06:00 07:00 08:00 08:00 Temp 99.7 99.7 Pulse 90 87 84 Resp 25 26 24 B/P (MAP) 117/70 (86) 125/70 (88) 136/87 (103) Pulse Ox 93 96 97 O2 Delivery Room Air Room Air Room Air Room Air 10/04/17 10/04/17 10/04/17 10/04/17 09:00 10:00 11:00 12:00 Pulse 80 83 82 Resp 22 24 29 B/P (MAP) 140/84 (102) 121/72 (88) 128/83 (98) Pulse Ox 95 95 98 O2 Delivery Room Air Room Air Room Air Room Air 10/04/17 10/04/17 10/04/17 10/04/17 12:00 13:00 14:00 15:00 Temp 98.8 98.8 Pulse 84 86 93 94 Resp 30 22 34 22 B/P (MAP) 149/91 (110) 167/85 (112) 172/98 (122) 156/83 (107) Pulse Ox 96 96 96 O2 Delivery Room Air Room Air Room Air Room Air Intake and Output 10/03/17 10/03/17 10/04/17 15:00 23:00 07:00 Intake Total 3120 ml 136 ml 1667 ml Output Total 300 ml 875 ml 1050 ml Balance 2820 ml -739 ml 617 ml YOSHI ESTRELLA III DO Oct 04, 2017 16:15
[2017-10-04] MEDS: SIMETHICONE 80 MG TAB.CHEW PO PRN (20:54)
[2017-10-05] MEDS: IV NORMAL SALINE 1000ML BAG 1,000 ML IV SCH ×2 (00:01→12:06)
[2017-10-05] MEDS: PIPERACILLIN/TAZO IV Push 3.375 GM VIAL. IVP SCH ×4 (00:02→18:01)
[2017-10-05 03:49] VITALS: BP 144/81
[2017-10-05 04:39] LABS: BASO % 0 % (0-3); EOS % 1 % (0-3); HEMATOCRIT 26.6 % (36.0-47.0); HEMOGLOBIN 8.6 g/dL (12.0-15.5); LYMPH # 0.9 x10^3/uL (1.0-4.8); LYMPH % 10 % (24-48); MEAN CORPUSCULAR HEMOGLOBIN 20 pg (25-35); MEAN CORPUSCULAR HGB CONC 32 g/dL (31-37); MEAN CORPUSCULAR VOLUME 61 fL (79-100); MONO % 7 % (0-9); NEUT % 82 % (31-73); PLATELET COUNT 128 x10^3/uL (140-400); RED BLOOD COUNT 4.38 x10^6/uL (3.50-5.40); RED CELL DISTRIBUTION WIDTH 18.4 % (11.5-14.5); WHITE BLOOD COUNT 8.6 x10^3/uL (4.0-11.0)
[2017-10-05 05:09] LABS: CALCIUM 8.4 mg/dL (8.5-10.1); CREATININE 1.1 mg/dL (0.6-1.0); GFR 51.8; POTASSIUM 3.7 mmol/L (3.5-5.1)
[2017-10-05] MEDS: ACETAMINOPHEN 325 MG TABLET. PO PRN (06:37)
[2017-10-05 07:00] VITALS: BP 130/71
--- NOTE | 2017-10-05 08:44 | PDOC ---
PROGRESS NOTES Chief Complaint Chief Complaint UTI Sepsis ASSESSMENT AND PLAN: 1. Seoptic shock: slowly improving. hypotension, leukocytosis resolved, low grade fever persisting 2. Bacteremia: GNR om prelim cult. cont Absx as per ID (zosyn) 3. UTI: GNR 4. Breast CA, stage 3A: completed chemo in May, now on Herceptin/AI. restart AI 5. Anemia: severely microcytic. check iron profile 6. thrombocytopenia: 2/2 sepsis. nadiring in 80s. monitor 7. HTN: BP recovered. restart home BB 8. Prophylaxis: lovenox History of Present Illness History of Present Illness feels well, no dysuria, appetite recovering Vitals Vitals Vital Signs Date Time Temp Pulse Resp B/P (MAP) Pulse Ox O2 Delivery O2 Flow Rate FiO2 10/05/17 07:00 98.3 87 16 130/71 (90) 96 Room Air 98.3 Physical Exam General: Alert, Oriented X3, Cooperative, No acute distress Heart: Regular rate Lungs: Clear Abdomen: Normal bowel sounds, No tenderness Extremities: No clubbing, No edema Skin: No rashes, No significant lesion Labs LABS Laboratory Tests Test 10/05/17 03:45 White Blood Count 8.6 x10^3/uL (4.0-11.0) Red Blood Count 4.38 x10^6/uL (3.50-5.40) Hemoglobin 8.6 g/dL (12.0-15.5) Hematocrit 26.6 % (36.0-47.0) Mean Corpuscular Volume 61 fL (79-100) Mean Corpuscular Hemoglobin 20 pg (25-35) Mean Corpuscular Hemoglobin Concent 32 g/dL (31-37) Red Cell Distribution Width 18.4 % (11.5-14.5) Platelet Count 128 x10^3/uL (140-400) Neutrophils (%) (Auto) 82 % (31-73) Lymphocytes (%) (Auto) 10 % (24-48) Monocytes (%) (Auto) 7 % (0-9) Eosinophils (%) (Auto) 1 % (0-3) Basophils (%) (Auto) 0 % (0-3) Neutrophils # (Auto) 7.0 x10^3uL (1.8-7.7) Lymphocytes # (Auto) 0.9 x10^3/uL (1.0-4.8) Monocytes # (Auto) 0.6 x10^3/uL (0.0-1.1) Eosinophils # (Auto) 0.1 x10^3/uL (0.0-0.7) Basophils # (Auto) 0.0 x10^3/uL (0.0-0.2) Sodium Level 139 mmol/L (136-145) Potassium Level 3.7 mmol/L (3.5-5.1) Chloride Level 107 mmol/L (98-107) Carbon Dioxide Level 22 mmol/L (21-32) Anion Gap 10 (6-14) Blood Urea Nitrogen 9 mg/dL (7-20) Creatinine 1.1 mg/dL (0.6-1.0) Estimated GFR (Cockcroft-Gault) 51.8 Glucose Level 101 mg/dL (70-99) Calcium Level 8.4 mg/dL (8.5-10.1) EVANGELINA MACKAY MD Oct 05, 2017 08:44
[2017-10-05] MEDS ORDERED: ENOXAPARIN 40 MG/0.4 ML SYRINGE. SQ SCH (09:00)
[2017-10-05] MEDS ORDERED: ANASTROZOLE 1 MG TABLET PO SCH (09:00)
--- NOTE | 2017-10-05 09:15 | PDOC ---
Infectious Disease Note Subjective Subjective feeling good, no complaints ROS ROS GEN: Denies fevers, chills, sweats HEENT: Denies blurred vision, sore throat CV: Denies chest pain RESP: Denies shortness of air, cough GI: Denies n/v/d NEURO: Denies confusion, dizziness MSK: Denies weakness, joint pain/swelling Vital Sign Vital Signs Vital Signs Date Time Temp Pulse Resp B/P (MAP) Pulse Ox O2 Delivery O2 Flow Rate FiO2 10/05/17 07:00 98.3 87 16 130/71 (90) 96 Room Air 98.3 Physical Exam PHYSICAL EXAM GENERAL: NAD, Alert HEENT: PERRL, OC/OP NECK: Supple, no JVD, no LN LUNGS: Clear HEART: S1S2, no gallop, no murmur ABD: Soft, NT, no organomegaly, no rebound EXT: No edema, no cyanosis [employer]: Alert, oriented x 3, no focal neurologic deficit SKIN: No rash IV: ok Labs Lab Laboratory Tests Test 10/05/17 03:45 White Blood Count 8.6 x10^3/uL (4.0-11.0) Red Blood Count 4.38 x10^6/uL (3.50-5.40) Hemoglobin 8.6 g/dL (12.0-15.5) Hematocrit 26.6 % (36.0-47.0) Mean Corpuscular Volume 61 fL (79-100) Mean Corpuscular Hemoglobin 20 pg (25-35) Mean Corpuscular Hemoglobin Concent 32 g/dL (31-37) Red Cell Distribution Width 18.4 % (11.5-14.5) Platelet Count 128 x10^3/uL (140-400) Neutrophils (%) (Auto) 82 % (31-73) Lymphocytes (%) (Auto) 10 % (24-48) Monocytes (%) (Auto) 7 % (0-9) Eosinophils (%) (Auto) 1 % (0-3) Basophils (%) (Auto) 0 % (0-3) Neutrophils # (Auto) 7.0 x10^3uL (1.8-7.7) Lymphocytes # (Auto) 0.9 x10^3/uL (1.0-4.8) Monocytes # (Auto) 0.6 x10^3/uL (0.0-1.1) Eosinophils # (Auto) 0.1 x10^3/uL (0.0-0.7) Basophils # (Auto) 0.0 x10^3/uL (0.0-0.2) Sodium Level 139 mmol/L (136-145) Potassium Level 3.7 mmol/L (3.5-5.1) Chloride Level 107 mmol/L (98-107) Carbon Dioxide Level 22 mmol/L (21-32) Anion Gap 10 (6-14) Blood Urea Nitrogen 9 mg/dL (7-20) Creatinine 1.1 mg/dL (0.6-1.0) Estimated GFR (Cockcroft-Gault) 51.8 Glucose Level 101 mg/dL (70-99) Calcium Level 8.4 mg/dL (8.5-10.1) Micro BC g neg sabina Objective Assessment UTI with sepsis Hypotension on vasopressors Septic shock Breast ca on chemo Fever G neg sepsis POA Plan Plan of Care cont zosyn check cultures supportive care d/w son at beside as soon as G neg sabina identified and susceptibility known then d/c on po SATNAM WHITTINGTON MD Oct 05, 2017 09:15
[2017-10-05 09:25] LABS: % SAT IRON 12 % (15-34); IRON,SERUM 17 ug/dL (50-170)
[2017-10-05] MEDS: SIMETHICONE 80 MG TAB.CHEW PO PRN (10:13)
[2017-10-05] MEDS: CARVEDILOL 12.5 MG TABLET. PO SCH ×2 (10:14→18:00)
[2017-10-05 10:33] VITALS: BP 125/78
[2017-10-05 14:54] VITALS: BP 134/87
[2017-10-05 19:00] VITALS: BP 146/90
[2017-10-05] MEDS ORDERED: CIPR500S3 PO (19:59)
[2017-10-05] MEDS ORDERED: CIPROFLOXACIN HCL 250 MG TABLET. PO SCH (21:00)
--- NOTE | 2017-10-29 15:05 | DS ---
DATE OF DISCHARGE: 10/05/2017 CHIEF COMPLAINT: UTI, sepsis. HOSPITAL COURSE: The patient is a 56-year-old woman who presented in septic shock to the Emergency Room. Hypotension, leukocytosis and fever at presentation slowly improved with the former 2 fairly fast and fever is lagging behind. On blood cultures, she was shown to be positive for gram-negative rods, which were shown to be E. coli. With susceptibility known, she was started on p.o. ciprofloxacin and discharged to home. PHYSICAL EXAMINATION: VITAL SIGNS: Show a blood pressure of 134/87, heart rate of 80, respiratory rate at 16. She is afebrile. GENERAL: This is a well-nourished 56-year-old woman, alert and oriented, no acute distress. LUNGS: Clear. HEART: Regular rate and rhythm. ABDOMEN: Positive bowel sounds, soft, nontender. DISCHARGE DIAGNOSES: Escherichia coli urinary tract infection with sepsis. DISCHARGE DISPOSITION: To home. DISCHARGE CONDITION: Improved. DISCHARGE MEDICATIONS: Please refer to MAR. DISCHARGE INSTRUCTIONS: The patient will follow up with PCP in 1 week. EVANGELINA MACKAY MD DR: UR/nts JOB#: [id number] / [id number] SAUNDRA Fernandes MD MTDD
== END 2017-10-05 20:45 | disposition home or self-care (01) | DRG 871 ==
LOC: ER 20:23 → 6 SOUTH 22:20 → 1 WEST ICU 23:51 → 5 SOUTH 10-04 18:12
PROVIDERS: ADMIT Internal Medicine; ATTEND Internal Medicine
DX: A41.50 Gram-negative sepsis, unspecified (principal); R65.21 Severe sepsis with septic shock; N17.9 Acute kidney failure, unspecified; D69.59 Other secondary thrombocytopenia; E86.9 Volume depletion, unspecified; N39.0 Urinary tract infection, site not specified; C50.912 Malignant neoplasm of unspecified site of left female breast; D50.9 Iron deficiency anemia, unspecified; E87.6 Hypokalemia; I10 Essential (primary) hypertension; Z90.12 Acquired absence of left breast and nipple; Z83.3 Family history of diabetes mellitus; Z17.0 Estrogen receptor positive status [ER+]
CPT/HCPCS: 36415; 71010; 80048; 80053; 81001; 82728; 83540; 83550; 83605; 85007; 85025; 85651; 86140; 87040; 87086; 87186; 87205; 87641; 87804; 93005; J1650; J1885; J1956; J2405; J2543; J3370; J3480; J7030; J7040; 97530

== ENCOUNTER → 2017-11-07 | Outpatient (CLI) | payer OTHER ==
[~2017-11-07] MED LIST changes: +CIPR500S3 PO
--- NOTE | 2017-11-07 14:18 | CARD ---
MR#: [id number] Date of Study: 11/07/2017 Ordering Physician: KYM GAMBINO, Referring Physician: KYM GAMBINO, Tamica: Wilman Olmos [facility] APPROVED REPORT EXAM: Two-dimensional and M-mode echocardiogram with Doppler and color Doppler. Other Information HR: 70bpm INDICATION Hypertension/HCVD Pre-Op 2D DIMENSIONS RVDd2.6 (2.9-3.5cm)Left Atrium(2D)3.3 (1.6-4.0cm) IVSd0.9 (0.7-1.1cm)Aortic Root(2D)3.2 (2.0-3.7cm) LVDd4.2 (3.9-5.9cm)LVOT Diameter1.9 (1.8-2.4cm) PWd0.9 (0.7-1.1cm)LVDs2.3 (2.5-4.0cm) FS (%) 45.5 %SV60.5 ml LVEF(%)77.2 (>50%) Aortic Valve AoV Peak Jagdeep.121.0cm/sAoV VTI26.3cm AO Peak GR.5.9mmHgLVOT Peak Jagdeep.94.4cm/s AO Mean GR.3mmHgAVA (VMAX)2.22cm2 Mitral Valve MV E Ufmtuujz41.6cm/sMV E Peak Gr.40mmHg MV DECEL [id number] A Swrcsmki93.4cm/s MV ORT92jvS/A Ratio0.8 MVA (PHT)2.60cm2 TDI E/Lateral E'9.3E/Medial E'8.7 Pulmonary Valve PV Peak Fysxooxp838.7cm/sPV Peak Grad.4mmHg Tricuspid Valve RAP [id number] Pulmonary Vein S1 Krejxobd01.8cm/sD2 Kgvbxunm21.3cm/s LEFT VENTRICLE The left ventricle is normal size. Proximal septal thickening is noted. The left ventricular systolic function is normal. The ejection fraction is estimated at 65%. There is normal LV segmental wall mot ion. Transmitral Doppler flow pattern is Grade I-abnormal relaxation pattern. RIGHT VENTRICLE The right ventricle is normal size. The right ventricular systolic function is normal. ATRIA The left atrium size is normal. The right atrium size is normal. The interatrial septum is intact wit h no evidence for an atrial septal defect or patent foramen ovale as noted on 2-D or Doppler imaging. AORTIC VALVE The aortic valve is thickened but opens well. Doppler and Color Flow revealed trace aortic regurgitat ion. There is no significant aortic valvular stenosis. There is no aortic valvular vegetation. MITRAL VALVE The mitral valve is thickened but opens well. There is no evidence of mitral valve prolapse. There is no mitral valve stenosis. Doppler and Color-flow revealed trace mitral regurgitation. TRICUSPID VALVE The tricuspid valve is normal in structure and function. Doppler and Color Flow revealed mild tricusp id regurgitation. There is no tricuspid valve prolapse or vegetation. There is no tricuspid valve arabella nosis. PULMONIC VALVE Not visualized well. Doppler and Color Flow revealed no pulmonic valvular regurgitation. There is no pulmonic valvular stenosis. GREAT VESSELS The aortic root is normal in size. The ascending aorta is normal in size. The IVC is normal in size a nd collapses >50% with inspiration. PERICARDIAL EFFUSION There is no pleural effusion. There is no evidence of significant pericardial effusion. Critical Notification Critical Value: No <Conclusion> The left ventricular systolic function is normal. The ejection fraction is estimated at 65%. There is normal LV segmental wall motion. Transmitral Doppler flow pattern is Grade I-abnormal relaxation pattern. Trace mitral regurgitation. Mild tricuspid regurgitation. There is no evidence of significant pericardial effusion. Signed by : Alberto Price, Electronically Approved : 11/07/2017 14:17:50
== END | disposition home or self-care (01) ==
LOC: ECHO 09:35
PROVIDERS: ATTEND Internal Medicine Hematology & Oncology
DX: C50.112 Malignant neoplasm of central portion of left female breast (principal); I11.9 Hypertensive heart disease without heart failure; I07.1 Rheumatic tricuspid insufficiency; Z17.0 Estrogen receptor positive status [ER+]
CPT/HCPCS: 93306

== ENCOUNTER → 2018-01-23 | Outpatient (CLI) | payer OTHER | END | disposition home or self-care (01) | LOC: ECHO 10:08 | DX: C50.112 Malignant neoplasm of central portion of left female breast (principal); I10 Essential (primary) hypertension; I36.1 Nonrheumatic tricuspid (valve) insufficiency; Z17.0 Estrogen receptor positive status [ER+] | CPT/HCPCS: 93306 ==

== ENCOUNTER → 2018-04-18 | Outpatient (CLI) | payer OTHER | END | disposition home or self-care (01) | LOC: ECHO 08:26 | DX: C50.112 Malignant neoplasm of central portion of left female breast (principal); Z17.0 Estrogen receptor positive status [ER+] | CPT/HCPCS: 93308 ==